=== PATIENT | female | born 1975 | race Caucasian/White ===

== ENCOUNTER 2016-08-23 12:46 | Outpatient (CLI) | payer MEDICAID | END 2016-08-23 13:25 | disposition home or self-care (01) | LOC: LC 12:46 | PROVIDERS: ATTEND Obstetrics & Gynecology | PROC: 4A1HXCZ Monitoring of Products of Conception, Cardiac Rate, External Approach (ICD-10-PCS; principal; 2016-08-23) | DX: O24.419 Gestational diabetes mellitus in pregnancy, unspecified control (principal); O09.523 Supervision of elderly multigravida, third trimester; Z3A.37 37 weeks gestation of pregnancy | CPT/HCPCS: 59025 ==

== ENCOUNTER 2016-09-09 04:43 | Inpatient (IN) | payer MEDICAID ==
[2016-09-09] MEDS ORDERED: RINGERS SOLUTION,LACTATED 1,000 ML IV ONE (05:08)
[2016-09-09] MEDS ORDERED: RINGERS SOLUTION,LACTATED 1,000 ML IV PRN (05:08)
[2016-09-09] MEDS ORDERED: OXYTOCIN/NORMAL SALINE 20 UNIT/1,000 ML RTUINJ ONE ×2 (05:09→07:53)
[2016-09-09] MEDS ORDERED: LIDOCAINE 1% INJ-PF (10 MG/ML) 30 ML SDV ONE (05:09)
[2016-09-09] MEDS ORDERED: MISOPROSTOL 0.2 MG TABLET ONE (05:09)
[2016-09-09] MEDS ORDERED: OXYTOCIN 10 UNIT/ML VIAL ONE (05:14)
[2016-09-09] MEDS ORDERED: METHYLERGONOVINE MALEATE INJ/PF 0.2 MG/1 ML AMPULE ONE (05:15)
[2016-09-09] MEDS ORDERED: PROMETHAZINE HCL 25 MG SUPP.RECT PR PRN (05:43)
[2016-09-09] MEDS ORDERED: METHYLERGONOVINE MALEATE INJ/PF 0.2 MG/1 ML AMPULE IM PRN (05:43)
[2016-09-09] MEDS ORDERED: BENZOCAINE/MENTHOL AEROSOL SPRAY 56 ML TOP PRN (05:43)
[2016-09-09] MEDS ORDERED: OXYTOCIN/NORMAL SALINE 1,000 ML IV PRN (05:43)
[2016-09-09] MEDS ORDERED: MAGNESIUM HYDROXIDE SUSP 30 ML UDCUP PO PRN (05:43)
[2016-09-09] MEDS ORDERED: PROMETHAZINE HCL 25 MG TABLET PO PRN (05:43)
[2016-09-09] MEDS ORDERED: DIPH/PERTUSS(ACELL)/TETANUS VAC/PF 0.5 ML SYR (>=10YO) IM PRN (05:43)
[2016-09-09] MEDS ORDERED: DIBUCAINE 1% OINTMENT 28 GM TP PRN (05:43)
[2016-09-09] MEDS ORDERED: PROMETHAZINE HCL INJ 25 MG/1 ML VIAL IV PRN (05:43)
[2016-09-09] MEDS ORDERED: MISOPROSTOL 0.2 MG TABLET PR PRN (05:43)
[2016-09-09] MEDS ORDERED: MEASLES,MUMPS&RUBELLA VACC/PF 0.5 ML VIAL SUBCUT PRN (05:43)
[2016-09-09] MEDS ORDERED: DIPHENHYDRAMINE HCL 25 MG CAPSULE PO PRN (05:43)
[2016-09-09] MEDS ORDERED: ZOLPIDEM TARTRATE 5 MG TABLET PO PRN (05:43)
[2016-09-09] MEDS ORDERED: NA PHOS,M-B/NA PHOS,DI-BA (ADULT) 133 ML ENEMA PR PRN (05:43)
[2016-09-09] MEDS ORDERED: ACETAMINOPHEN 650 MG SUPP.RECT PR PRN (05:43)
[2016-09-09] MEDS ORDERED: PSEUDOEPHEDRINE HCL 30 MG TABLET PO PRN (05:43)
[2016-09-09] MEDS ORDERED: GLYCERIN/WITCH HAZEL LEAF 1 EACH MED..PAD TP PRN (05:43)
[2016-09-09] MEDS ORDERED: IBUPROFEN 800 MG TABLET ONE (05:50)
[2016-09-09] MEDS ORDERED: ACETAMINOPHEN WITH CODEINE #3 TABLET ONE (05:50)
[2016-09-09 06:28] LABS: ABSOLUTE LYMPHOCYTES (AUTO) 1.9 10^3/uL (0.5-4.7); ABSOLUTE MONOCYTES (AUTO) 0.8 10^3/uL (0.1-1.4); ABSOLUTE NEUT (AUTO) 12.4 10^3/uL (1.7-8.2); BASOPHILS % (AUTO) 0.3 % (0-2); EOSINOPHILS % (AUTO) 0.3 % (0-6); HEMATOCRIT 38.6 % (36.0-47.0); HEMOGLOBIN 13.1 g/dL (12.0-15.5); HGB HCT DIFFERENCE 0.7; LYMPHOCYTES % (AUTO) 12.7 % (13-45); MEAN CORPUSCULAR HEMOGLOBIN 28.5 pg (27.0-33.4); MEAN CORPUSCULAR HGB CONC 33.9 g/dL (32.0-36.0); MEAN CORPUSCULAR VOLUME 84 fl (80-97); MONOCYTES % (AUTO) 5.5 % (3-13); RED CELL DISTRIBUTION WIDTH 13.5 % (11.5-14.0); SEGMENTED NEUTROPHILS % (AUTO) 81.2 % (42-78); WHITE BLOOD COUNT 15.2 10^3/uL (4.0-10.5)
[2016-09-09 06:35] LABS: APPEARANCE,URINE SLIGHTLY-CLOUDY; BILIRUBIN,URINE NEGATIVE (NEGATIVE); GLUCOSE, URINE NEGATIVE (NEGATIVE); KETONES,URINE NEGATIVE (NEGATIVE); LEUKOCYTE ESTERASE,URINE NEGATIVE (NEGATIVE); NITRITE,URINE NEGATIVE (NEGATIVE); PROTEIN,URINE 30 mg/dL (NEGATIVE); URINE SPECIFIC GRAVITY 1.009; UROBILINOGEN,URINE NEGATIVE mg/dL (<2.0)
[2016-09-09 06:50] LABS: URINE BARBITURATES SCREEN NEGATIVE; URINE METHADONE SCREEN NEGATIVE; URINE OPIATES LOW NEGATIVE; URINE PHENCYCLIDINE SCREEN NEGATIVE
[2016-09-09] MEDS: IBUPROFEN 800 MG TABLET PO SCH ×3 (07:56→21:25)
--- NOTE | 2016-09-09 08:01 | L&D Flow Sheet ---
LD Flowsheet Datetime Report Generated by CPN: 09/09/2016 08:00 Datetime: 09/09/2016 07:51 NBP Sys/Lindsay/Mean (mmHg): 122 (QS system process) : 78 (QS system process) : 95 (QS system process) Pulse: 81 (QS system process) Datetime: 09/09/2016 07:35 NBP Sys/Lindsay/Mean (mmHg): 129 (QS system process) : 77 (QS system process) : 98 (QS system process) Pulse: 76 (QS system process) Datetime: 09/09/2016 07:20 NBP Sys/Lindsay/Mean (mmHg): 137 (QS system process) : 70 (QS system process) : 96 (QS system process) Pulse: 77 (QS system process) Respirations: 18 (Adri Camp, RNC) Temperature (F): 98.4 (Adri Camp, RNC) Temperature (C): 36.9 (QS system process) Temperature Route: Oral (Adri Camp, RNC) Pain Pain Scale: 3 (Adri Camp, RNC) Pain Presence: Constant (Adri Camp, RNC) Pain Type: Burning; Cramping (Adri Camp, RNC) Pain Location: Abdomen; Perineum (Adri Camp, RNC) Pain Goal: 2 (Adri Camp, RNC) Pain Relief Measures: Pain Medication Given; Comfort Measures (Annotations: Ice pack reapplied, warm compress to abdomen. Dr Kerr on unit given verbal report of pt continued pain level of 3 after meds, repositioning, cold pack to perineum. ) (Adri Camp, RNC) Datetime: 09/09/2016 07:06 NBP Sys/Lindsay/Mean (mmHg): 131 (QS system process) : 93 (QS system process) : 105 (QS system process) Pulse: 89 (QS system process) Datetime: 09/09/2016 07:00 Vital Signs Stage of : Recovery (Lilly Jason, RN) Pain Pain Scale: 3 (Lilly Jason, RN) Pain Presence: Constant (Lilly Jason, RN) Pain Type: Ache (Lilly Jason, RN) Pain Location: Abdomen; Perineum (Lilly Jason, RN) Datetime: 09/09/2016 06:50 NBP Sys/Lindsay/Mean (mmHg): 143 (QS system process) : 90 (QS system process) : 111 (QS system process) Pulse: 77 (QS system process) Datetime: 09/09/2016 06:45 Vital Signs Stage of : Recovery (Lilly Jason, RN) Pain Pain Scale: 3 (Lilly Jason, RN) Pain Presence: Constant (Lilly Jason, RN) Pain Type: Ache (Lilly Jason, RN) Pain Location: Abdomen; Perineum (Lilly Jason, RN) Datetime: 09/09/2016 06:42 NBP Sys/Lindsay/Mean (mmHg): 151 (QS system process) : 92 (QS system process) : 114 (QS system process) Pulse: 79 (QS system process) Datetime: 09/09/2016 06:36 NBP Sys/Lindsay/Mean (mmHg): 144 (QS system process) : 92 (QS system process) : 114 (QS system process) Pulse: 82 (QS system process) Datetime: 09/09/2016 06:30 Vital Signs Stage of : Recovery (Lilly Jason, RN) Pain Pain Scale: 3 (Lilly Jason, RN) Pain Presence: Constant (Lilly Jason, RN) Pain Type: Ache (Lilly Jason, RN) Pain Location: Abdomen; Perineum (Lilly Jason, RN) Datetime: 09/09/2016 06:15 Vital Signs Stage of : Recovery (Lilly Jason, RN) Pain Pain Scale: 3 (Lilly Jason, RN) Pain Presence: Constant (Lilly Jason, RN) Pain Type: Ache (Lilly Jason, RN) Pain Location: Abdomen; Perineum (Lilly Jason, RN) Datetime: 09/09/2016 06:06 NBP Sys/Lindsay/Mean (mmHg): 158 (QS system process) : 73 (QS system process) : 106 (QS system process) Pulse: 100 (QS system process) Datetime: 09/09/2016 06:00 Vital Signs Stage of : Recovery (Lilly Jason, RN) Pain Pain Scale: 3 (Lilly Jason, RN) Pain Presence: Constant (Lilly Jason, RN) Pain Type: Ache (Lilly Jaosn, RN) Pain Location: Abdomen; Perineum (Lilly Jason, RN) Datetime: 09/09/2016 05:51 NBP Sys/Lindsay/Mean (mmHg): 142 (QS system process) : 93 (QS system process) : 112 (QS system process) Pulse: 106 (QS system process) Datetime: 09/09/2016 05:45 Vital Signs Stage of : Recovery (Lilly Jason, RN) Pain Pain Scale: 5 (Lilly Jason, RN) Pain Presence: Constant (Lilly Jason, RN) Pain Type: Ache (Lilly Jason, RN) Pain Location: Abdomen; Perineum (Lilly Jason, RN) Datetime: 09/09/2016 05:37 NBP Sys/Lindsay/Mean (mmHg): 148 (QS system process) : 75 (QS system process) : 106 (QS system process) Pulse: 89 (QS system process) Datetime: 09/09/2016 05:36 NBP Sys/Lindsay/Mean (mmHg): 176 (QS system process) : 92 (QS system process) : 113 (QS system process) Pulse: 94 (QS system process) Datetime: 09/09/2016 05:35 Communication Communication Comments: Dr. neilsen remains at bedside (Lilly Jason, RN) Datetime: 09/09/2016 05:32 Patient Care Patient Care Comments: 18 IV L hand started, pitcoin 20 units/1000 ml NS bolus started (Lilly Jason, RN) Datetime: 09/09/2016 05:30 Vital Signs Stage of : Recovery (Lilly Jason, RN) NBP Sys/Lindsay/Mean (mmHg): 129 (QS system process) : 76 (QS system process) : 96 (QS system process) Pulse: 88 (QS system process) Temperature (F): 98.0 (Lilly Jason, RN) Temperature (C): 36.7 (QS system process) Temperature Route: Oral (Lilly Jason, RN) Pain Pain Scale: 5 (Lilly Jason, RN) Pain Presence: Constant (Lilly Jason, RN) Pain Type: Ache (Lilly Jason, RN) Pain Location: Abdomen; Perineum (Lilly Jason, RN) Datetime: 09/09/2016 05:27 Medications Medication Comments: methergine 0.2 IM to L thigh (Lilly Jason, RN) Datetime: 09/09/2016 05:24 Medications Medication Comments: Cytotec 1000 ml RI (Lilly Jason, RN) Datetime: 09/09/2016 05:22 Stage 2 Comments: delivery of intact placenta in toribio position, wnl (Lilly Jason, RN) Datetime: 09/09/2016 05:20 Stage 2 Comments: cord blood obtained (Lilly Jason, RN) Datetime: 09/09/2016 05:18 Medications Medication Comments: Pitocin 10 units IM left thigh (Lilly Jason, RN) Datetime: 09/09/2016 05:17 Uterine Activity Monitor Mode: External; Palpation (Lilly Jason, RN) Frequency (min): 1.5-2 (Lilly Jason, RN) Quality: Moderate to Strong (Lilly Jason, RN) Duration (sec): 50-70 (Lilly Jason, RN) Duration Criteria: Less than Two 120 Second Contractions (Lilly Jason, RN) Pattern: Normal: <= 5 Contractions in 10 Minutes (Lilly Jason, RN) Resting Tone (Palpate): Relaxed (Lilly Jason, RN) Assessment A Monitor Mode: External US (Lilly Jason, RN) FHR Baseline Rate : 115 (Lilly Jason, RN) Variability: Moderate 6-25 bpm (Lilly Jason, RN) Accelerations: 15X15 (Lilly Jason, RN) Decelerations: Early (Lilly Jason, RN) Stage 2 Comments: delivery of viable female, infant directly to maternal abdomen, dried and stimulated, bulb suctioned (Lilly Jason, RN) Datetime: 09/09/2016 05:14 Vaginal Exam Dilatation (cm): 10.0 (Lilly Jason, RN) Effacement (%): 100 (Lilly Jason, RN) Station: 3 (Lilly Gomez, RN) Exam by: Dr Kerr (Lilly Gomez, RN) Membrane Status: Ruptured (Lilly Simsco, RN) Membranes Ruptured Date/Time: 09/09/2016 05:14 (Lilly Jason, RN) Membranes Rupture Method: Artificial (Lilly Jason, RN) Amniotic Fluid Color: Light Meconium (Lilly Jason, RN) Amniotic Fluid Amount: Small (Lilly Jason, RN) Amniotic Fluid Odor: Normal (Lilly Jason, RN) Stage 2 Pushing: Coached on Pushing (Lilly Gomez, RN) Pushing Position: Pushing with Contractions (Lilly Gomez, RN) Pushing Progress: Descent with Pushing; Presenting Part Visible; with Pushing (Lilly Gomez, RN) Stage 2 Comments: preparing for imminent delivery, dr kerr at bedside, nursery carolina patton at bedside (Lilly Gomez, RN) Datetime: 09/09/2016 05:12 Stage 2 Comments: nursery requested (Lilly Jason, RN) Datetime: 09/09/2016 05:09 Communication Communication Comments: dr. neilsen at bedside (Lilly Jason, RN) Datetime: 09/09/2016 05:08 Frequency (min): Q2-3 (Lilly Jason, RN) Pain Pain Scale: 5 (Lilly Jason, RN) Pain Presence: Constant (Lilly Jason, RN) Pain Type: Contraction (Lilly Jason, RN) Pain Location: Abdomen (Lilly Jason, RN) Vaginal Bleeding: Normal Show (Lilly Jason, RN) Maternal Assessment Level of Consciousness: Fully Conscious (Lilly Jason, RN) DTR's/Clonus: DTRs 2+; No Clonus (Lilly Jason, RN) Headache: Denies (Lilly Jason, RN) Breath Sounds, Left: Clear and Equal (Lilly Jason, RN) Breath Sounds, Right: Clear and Equal (Lilly Jason, RN) Nausea/Vomiting: Denies (Lilly Jason, RN) RUQ Epigastric Pain: Denies (Lilly Jason, RN) LaborFlag: Labor (QS system process) Datetime: 09/09/2016 05:07 Communication Communication Comments: Dr. Neilsen aware of patient arrival and imminent delivery. MD in route (Sheila Kossmann, RN) Datetime: 09/09/2016 05:05 Vaginal Exam Dilatation (cm): 8.0 (Lilly Jason, RN) Vaginal Exam Dilatation (cm): 8.0 (Sheila Wynn RN) Effacement (%): 100 (Lilly Gomez RN) Effacement (%): 100 (Sheila Wynn RN) Station: 0 (Lilly Gomez RN) Station: 0 (Sheila Wynn RN) Exam by: Juan M Gomez RN (Lilly Gomez RN) Exam by: CAROLINA Gomez (Sheila Wynn RN) Membrane Status: Bulging (Annotations: BBOW) (Sheila Wynn RN) Vaginal Bleeding: None (Lilly Gomez RN) Cervix, Consistency: Soft (Lilly Gomez RN) Cervix, Position: Anterior (Lilly Gomez, CAROLINA) Datetime: 09/09/2016 05:00 Vital Signs Stage of : Labor (Lilly Gomez, RN)
--- NOTE | 2016-09-09 08:13 | Admission Physical ---
Datetime Report Generated by CPN: 09/09/2016 08:13 CURRENT ADMISSION Hx Assessment: The History has been Reviewed and is Current Chief Complaint: Uterine Contractions Admit Plan: Initiate Labor Protocol ALLERGIES Medication Allergies: No Medication Allergies: No Known Allergies (09/09/2016) Medication Allergies: No Known Allergies (08/23/2016) Medication Allergies: No Known Allergies (03/20/2012) Latex: Latex Allergies OBSTETRICAL HISTORY EDC: 09/08/2016 00:00 : 7 Para: 2 Term: 2 : 0 SAB: 4 IAB: 0 Ectopic: 0 Livin Cesareans: 0 VBACs: 0 Multiple Births: 0 Gestational Diabetes: Yes Rh Sensitization: No Incompetent Cervix: No SHAYNA: No Infertility: No ART Treatment: No Uterine Anomaly: No IUGR: No Hx Previous C/S: No Macrosomia: No Hx Loss/Stillborn: No PIH: No Hx : No Placenta Previa/Abruption: No Depression/PP Depression: No PTL/PROM: No Post Hemorrhage: No Current Procedures: Ultrasound; NST SEE RECORDS Alcohol: No Marijuana : No Cocaine: No Other Illicit Drugs: No Cigarettes: Current Everyday Smoker. [id number] Advised to Stop: Yes MEDICAL HISTORY Diabetes: No Blood Transfusion: No Pulmonary Disease (Asthma, TB): No Breast Disease: No Hypertension: No Waste Removalist Surgery: No Heart Disease: No Hosp/Surgery: No Autoimmune Disorder: No Anesthetic Complications: No Kidney Disease: No Abnormal Pap Smear: Yes Neuro/Epilepsy: No Psychiatric Disorders: No Other Medical Diseases: No Hepatitis/Liver Disease: No Significant Family History: No Varicosities/Phlebitis: No Trauma/Violence : No Thyroid Dysfunction: No INFECTIOUS HISTORY Gonorrhea: Yes Genital Herpes: No Chlamydia: Yes Tuberculosis: No Syphilis: No Hepatitis: No HIV/AIDS Exposure: No Rash or Viral Illness: No HPV: Yes PHYSICAL EXAM General: Normal HEENT: Normal Neurologic: Normal Thyroid: Normal Heart: Normal Lungs: Normal Breast: Normal Back: Normal Abdomen: Normal Genitourinary Exam: Normal Extremities: Normal DTRs: Normal Pelvic Type: Adequate Physical Exam Comments: pt arrived 8cm with bulging bag and rapidly progressed to complete and pushing before iv could be started. Arom with bag at perineum -light meconium FETUS A EGA: 40.1 Monitoring: External US Admit Comment: pt had preciptious delivery-see delivery note PLANS FOR LABOR AND DELIVERY Labor and Delivery: None Pain Management: None Feeding Preference: Breast Benefit of Breast Feed Discussed: Yes Circumcision: N/A INFORMED CONSENT Signature: with User ID: [email or web address]
[2016-09-09] MEDS: PRENATAL VITAMIN W-O CA NO5/FE FUMARATE/FA CAPSULE PO SCH (10:31)
[2016-09-09] MEDS: FAMOTIDINE 20 MG TABLET PO SCH ×2 (10:32→21:24)
[2016-09-09] MEDS: FERROUS SULFATE 325 MG TABLET PO SCH ×2 (10:32→18:05)
[2016-09-09] MEDS: DOCUSATE SODIUM 100 MG CAPSULE PO SCH ×2 (10:32→18:06)
[2016-09-09] MEDS: SENNOSIDES/DOCUSATE 8.6-50 MG 1 EACH TABLET PO SCH (10:32)
[2016-09-09] MEDS: ACETAMINOPHEN WITH CODEINE #3 TABLET PO PRN ×3 (10:41→19:46)
[2016-09-09 12:30] LABS: ABSOLUTE BASOPHILS # (AUTO) 0.1 10^3/uL (0.0-0.2); ABSOLUTE LYMPHOCYTES (AUTO) 2.3 10^3/uL (0.5-4.7); ABSOLUTE MONOCYTES (AUTO) 0.9 10^3/uL (0.1-1.4); ABSOLUTE NEUT (AUTO) 13.7 10^3/uL (1.7-8.2); BASOPHILS % (AUTO) 0.6 % (0-2); EOSINOPHILS % (AUTO) 0.2 % (0-6); HEMOGLOBIN 11.6 g/dL (12.0-15.5); HGB HCT DIFFERENCE 0.8; LYMPHOCYTES % (AUTO) 13.4 % (13-45); MEAN CORPUSCULAR HEMOGLOBIN 28.6 pg (27.0-33.4); MEAN CORPUSCULAR HGB CONC 34.2 g/dL (32.0-36.0); MEAN CORPUSCULAR VOLUME 84 fl (80-97); MONOCYTES % (AUTO) 5.1 % (3-13); RED BLOOD COUNT 4.07 10^6/uL (3.72-5.28); RED CELL DISTRIBUTION WIDTH 13.7 % (11.5-14.0); SEGMENTED NEUTROPHILS % (AUTO) 80.7 % (42-78)
--- NOTE | 2016-09-09 14:35 | PDOC PROGRESS REPORT ---
Subjective-OB Subjective: Post Delivery Day: 1 41 year old. Voiding and ambulating without difficulty. Denies any needs at this time Physical Exam (OB) Vital Signs: Temp Pulse Resp BP Pulse Ox 98.9 F 81 18 122/78 100 09/09/16 08:15 09/09/16 08:15 09/09/16 08:15 09/09/16 08:15 09/09/16 08:15 Intake & Output 09/08/16 09/09/16 09/10/16 06:59 06:59 06:59 Intake Total 450 Balance 450 Weight 71.75 kg - General General Appearance: Appears well In distress: None - Lochia Lochia Amount: Moderate 25-50 ml Lochia Color: Rubra/Red - Abdomen Description: Soft Hernia Present: No Fundal Description: Firm, Midline Fundal Height: u/u - u/2 - Respiratory Respiratory Status: No respiratory distress - Psychological Associated symptoms: Normal affect - bonding well with baby. Older Daughter hepful and at bedside Objective-Diagnostic Laboratory: 09/09/16 12:19 09/09/16 09/09/16 09/09/16 06:20 06:20 06:20 WBC 15.2 H RBC 4.60 Hgb 13.1 Hct 38.6 MCV 84 MCH 28.5 MCHC 33.9 RDW 13.5 Plt Count 155 Seg Neutrophils % 81.2 H Lymphocytes % 12.7 L Monocytes % 5.5 Eosinophils % 0.3 Basophils % 0.3 Absolute Neutrophils 12.4 H Absolute Lymphocytes 1.9 Absolute Monocytes 0.8 Absolute Eosinophils 0.0 Absolute Basophils 0.0 Urine Color YELLOW Urine Appearance SLIGHTLY-CLOUDY Urine pH 5.0 Ur Specific [place] 1.009 Urine Protein 30 H Urine Glucose (UA) NEGATIVE Urine Ketones NEGATIVE Urine Blood LARGE H Urine Nitrite NEGATIVE Ur Leukocyte Esterase NEGATIVE Blood Type O POSITIVE Antibody Screen NEGATIVE 09/09/16 12:19 WBC 17.0 H RBC 4.07 Hgb 11.6 L Hct 34.0 L MCV 84 MCH 28.6 MCHC 34.2 RDW 13.7 Plt Count 147 L Seg Neutrophils % 80.7 H Lymphocytes % 13.4 Monocytes % 5.1 Eosinophils % 0.2 Basophils % 0.6 Absolute Neutrophils 13.7 H Absolute Lymphocytes 2.3 Absolute Monocytes 0.9 Absolute Eosinophils 0.0 Absolute Basophils 0.1 Urine Color Urine Appearance Urine pH Ur Specific [place] Urine Protein Urine Glucose (UA) Urine Ketones Urine Blood Urine Nitrite Ur Leukocyte Esterase Blood Type Antibody Screen Assessment and Plan(PN) - Assessment and Plan (1) hemorrhage, third stage, delivered Is this a current diagnosis for this admission?: YesPlan: continue stay, CBC in the am (2) Delivery normal Is this a current diagnosis for this admission?: YesPlan: continue stay (3) Gestational diabetes Qualifiers: Gestational diabetes mellitus control: diet-controlled Is this a current diagnosis for this admission?: YesPlan: cotnidavid stay - Time Spent with Patient Time with patient: Less than 15 minutes Medications reviewed and adjusted accordingly: Yes - Disposition Anticipated Discharge: Home Within: within 24 hours
--- NOTE | 2016-09-09 19:01 | L&D Flow Sheet ---
LD Flowsheet Datetime Report Generated by CPN: 09/09/2016 19:00 Datetime: 09/09/2016 07:51 NBP Sys/Lindsay/Mean (mmHg): 122 (QS system process) : 78 (QS system process) : 95 (QS system process) Pulse: 81 (QS system process) Respirations: 18 ([facility], [facility]) Pain Scale: 2 ([facility], [facility]) Pain Presence: Intermittent ([facility]) Pain Type: Burning; Cramping ([facility], [facility]) Pain Location: Abdomen; Perineum ([facility], [facility]) Pain Relief Measures: Pain Medication Given; Comfort Measures (Annotations: ice pack and peripad replaced ) ([facility], [facility]) Pain Assessment Comments: talking with visitor, no apparent distress noted [facility] Datetime: 09/09/2016 07:35 NBP Sys/Lindsay/Mean (mmHg): 129 (QS system process) : 77 (QS system process) : 98 (QS system process) Pulse: 76 (QS system process) Respirations: 18 (Adri Camp, RNC) Datetime: 09/09/2016 07:20 NBP Sys/Lindsay/Mean (mmHg): 137 (QS system process) : 70 (QS system process) : 96 (QS system process) Pulse: 77 (QS system process) Respirations: 18 (Adri Camp, RNC) Temperature (F): 98.4 (Adri Camp, RNC) Temperature (C): 36.9 (QS system process) Temperature Route: Oral (Adri Camp, RNC) Pain Scale: 3 (Adri Camp, RNC) Pain Presence: Constant (Adri Camp, RNC) Pain Type: Burning; Cramping (Adri Camp, RNC) Pain Location: Abdomen; Perineum (Adri Camp, RNC) Pain Goal: 2 (Adri Camp, RNC) Pain Relief Measures: Pain Medication Given; Comfort Measures (Annotations: Ice pack reapplied, warm compress to abdomen. Dr Ornelas on unit given verbal report of pt continued pain level of 3 after meds, repositioning, cold pack to perineum. ) (Adri Camp, RNC) Datetime: 09/09/2016 07:06 NBP Sys/Lindsay/Mean (mmHg): 131 (QS system process) : 93 (QS system process) : 105 (QS system process) Pulse: 89 (QS system process) Datetime: 09/09/2016 07:00 Stage of : Recovery (Lilly Gomez RN) Pain Scale: 3 (Lilly Gomez RN) Pain Presence: Constant (iLlly Gomez RN) Pain Type: Ache (Lilly Gomez RN) Pain Location: Abdomen; Perineum (Lilly Gomez RN)
[2016-09-10] MEDS: ACETAMINOPHEN WITH CODEINE #3 TABLET PO PRN ×5 (00:26→19:46)
[2016-09-10] MEDS: IBUPROFEN 800 MG TABLET PO SCH ×3 (05:03→21:16)
--- NOTE | 2016-09-10 06:01 | L&D General Admission ---
General Admit Datetime Report Generated by CPN: 09/10/2016 06:00 INFORMATION Patient Age: 41 (08/23/2016 12:48:QS system process) EDC: 09/08/2016 00:00 (08/23/2016 12:58:July Ectore, RNC) : 7 (08/23/2016 12:58:Julyarias Barneye, RNC) Para: 2 (08/23/2016 12:58:July Bellavance, RNC) Term: 2 (08/23/2016 12:58:July Bellavance, RNC) : 0 (08/23/2016 12:58:July Bellmiriamnce, RNC) Spontaneous Abortions: 4 (08/23/2016 12:58:July Ectore, RNC) Induced Abortions: 0 (08/23/2016 12:58:July Bellmiriamnce, RNC) Livin (08/23/2016 12:58:Julyarias Sanchez, RNC) Cesareans: 0 (08/23/2016 12:58:July Bellavance, RNC) VBACs: 0 (08/23/2016 12:58:July Bellavance, RNC) Ectopic: 0 (08/23/2016 12:58:July Bellavance, RNC) Multiple Births: 0 (08/23/2016 12:58:July Bellavance, RNC) Baby, Number in Womb: 1 (08/23/2016 12:58:July Bellavance, RNC) CARE Primary Track Coach: [facility] (08/23/2016 12:58:July Ectore, RNC) Month of 1st Visit: january (08/23/2016 12:58:Adri Parsons, RN) Adequate Care: Yes (08/23/2016 12:58:Adri Issa, RNC) Prepregnancy Weight (lb): 178 (08/23/2016 12:58:Adri Parsons RN) Prepregnancy Weight (kg): 80.9 (08/23/2016 12:58:QS system process) Height (in): 62 (09/09/2016 08:11:QS system process) ALLERGIES Medication Allergy: No (08/23/2016 12:58:July Bellavance, RNC) Medication Allergies: No Known Allergies (09/09/2016) (09/09/2016 08:01:QS system process) Latex Allergy: Latex Allergies (08/23/2016 12:58:July Bellavance, RNC) COMMUNICATION Primary Language: Cape Verdean (08/23/2016 12:58:Susan Awan RN) Medical Tx Preferred Language: Cape Verdean (08/23/2016 12:58:Susan Awan RN) Communication Barrier(s): None (08/23/2016 12:58:Susan Awan RN) DEMOGRAPHICS Address: [address] [place] [id number] (08/23/2016 12:48:QS system process) Zipcode: [phone] (08/23/2016 12:48:QS system process) Home (08/23/2016 12:48:QS system process) SSN: [id number] (08/23/2016 12:48:QS system process) Next of Kin Name: AURELIA SILVA (08/23/2016 12:48:QS system process) Next of Kin (08/23/2016 12:48:QS system process) Next of Kin Relationship: MO (08/23/2016 12:48:QS system process) Date of : 1975 (08/23/2016 12:48:QS system process) Marital Status: (08/23/2016 12:48:QS system process) Sex: Female (08/23/2016 12:48:QS system process) Race: (08/23/2016 12:48:QS system process) Ethnicity: Non- or (08/23/2016 12:48:QS system process) Zoroastrian: None (08/23/2016 12:48:QS system process) DRUG AND ALCOHOL USE Alcohol: No (08/23/2016 12:58:Lilly Gomez RN) Cigarettes: Current Everyday Smoker. [id number] (08/23/2016 12:58:Lilly Gomez RN) Advised to Stop Smoking: Yes (08/23/2016 12:58:Lilly Gomez RN) Marijuana: No (08/23/2016 12:58:Lilly Gomez RN) Cocaine: No (08/23/2016 12:58:Lilly Gomez RN) Other Illicit Drugs: No (08/23/2016 12:58:Lilly Gomez RN) VACCINE HISTORY Influenza Vaccine: No (08/23/2016 12:58:Lilly Gomez RN) Pneumococcal Vaccine: No (08/23/2016 12:58:Lilly Gomez RN) Tetanus Vaccine: No (08/23/2016 12:58[facility] Tdap Vaccine: No (08/23/2016 12:58:Adri [facility]) Hepatitis B Vaccine: Uncertain (08/23/2016 12:58:Adri [facility]) Logistics Solution Manager: [facility] (08/23/2016 12:58:Lilly Gomez RN) Feeding Preference: Breast (08/23/2016 12:58:Lilly Gomez RN) Benefit of Breast Feed Discussed: Yes (08/23/2016 12:58:Lilly Gomez RN) Circumcision: N/A (08/23/2016 12:58:Lilly Gomez RN) Classes Attended: No (08/23/2016 12:58:Lilly Gomez RN) Tubal Ligation: No (08/23/2016 12:58:Lilly Gomez RN) Tubal Authorization Signed: N/A (08/23/2016 12:58:Lilly Gomez RN) Consent: N/A (08/23/2016 12:58:Lilly Gomez RN) Consent Signed: Yes (08/23/2016 12:58:Lilly Gomez RN) Pain Management Plans: None (08/23/2016 12:58:Susan Awan RN) Plans for Labor and Delivery: None (08/23/2016 12:58:Susan Awan RN) Support Person: Ferdinand Silva (08/23/2016 12:58:Lilly Gomez RN) Support Person Relationship: Other (08/23/2016 12:58:Lilly Gomez RN) Other Relationship: daughter (08/23/2016 12:58:Lilly Gomez RN) Cultural/Spritual Practice: Yes (08/23/2016 12:58:Lilly Gomez RN) Spir/Cult Dietary Needs: Yes (08/23/2016 12:58:Lilly Gomez RN) LIVING SITUATION/DISCHARGE PLAN Living Arrangements: House (08/23/2016 12:58:Lilly Gomez RN) Adequate Access to:: Electric; Heat; Refrigeration; Plumbing/Running water; Phone; Transportation (08/23/2016 12:58:Lilly Gomez RN) WIC Program: Yes (08/23/2016 12:58:Lilly Gomez RN) Discharge Cloth Designer Person: Aurelia Silva (08/23/2016 12:58:Lilly Gomez RN) Person to Help after Discharge: Aurelia Pacheco08/23/2016 12:58:Lilly Gomez RN) Currently Using Commun Resources: Yes (08/23/2016 12:58:Lilly Gomez RN) Outside Agency/Cyber Incident Responder: No (08/23/2016 12:58:Lilly Gomez RN) Car Seat for Discharge: Yes (08/23/2016 12:58:Lilly Gomez RN) Adoption Requested: No (08/23/2016 12:58:Lilly Gomez RN) Pt Contact w/ Post : N/A (08/23/2016 12:58:Lilly Gomez RN) LABS Blood Type: O Positive (08/23/2016 12:58:Susan Awan RN) Antibody Screen: Negative (08/23/2016 12:58:Susan Awan RN) Rho(G) this : Not Applicable (08/23/2016 12:58:Susan Awan RN) Hemoglobin: 11.6 L (09/09/2016 12:19:QS system process) Hematocrit: 34.0 L (09/09/2016 12:19:QS system process) MCV: 84 (09/09/2016 12:19:QS system process) Group Beta Strep: Negative (08/23/2016 12:58:Susan Awan RN) Gonorrhea: Negative (08/23/2016 12:58:Susan Awan RN) Chlamydia: Negative (08/23/2016 12:58:Susan Awan RN) RPR/VDRL: Nonreactive (08/23/2016 12:58:Susan Aawn RN) HIV Exposure Test: Negative (08/23/2016 12:58:JAYLON Nunes) HIV Results: Negative (08/23/2016 12:58:Susan Awan RN) Hepatitis B: Negative (08/23/2016 12:58:Susan Awan RN) Rubella: Immune (08/23/2016 12:58:Susan Awan RN) Varicella: Non Susceptible (08/23/2016 12:58:Susan Awan RN) OB/PREVIOUS HISTORY Previous Procedures: Ultrasound (08/23/2016 12:58:Susan Awan RN) Current Procedures: Ultrasound; NST (08/23/2016 12:58:Susan Awan RN) History of Previous : No (08/23/2016 12:58:Lilly Gomez RN) History of Gestational Diabetes: Yes (08/23/2016 12:58:Lilly Gomez RN) History of PIH: No (08/23/2016 12:58:Lilly Gomez RN) History of Incompetent Cervix: No (08/23/2016 12:58:Lilly Gomez RN) History of Placenta Previa/Abrup: No (08/23/2016 12:58:Lilly Gomez RN) History of Macrosomia: No (08/23/2016 12:58:Lilly Gomez RN) History of IUGR: No (08/23/2016 12:58:Lilly Gomez RN) History of Hemorrhage: No (08/23/2016 12:58:Lilly Gomez RN) History of Loss/Stillborn: No (08/23/2016 12:58:Lilly Gomez RN) History of : No (08/23/2016 12:58:Lilly Gomez RN) History of D (Rh) Sensitization: No (08/23/2016 12:58:Lilly Gomez RN) History Recurrent Loss/Stillborn: No (08/23/2016 12:58:Lilly Gomez RN) History Depression/PP Depression: No (08/23/2016 12:58:Lilly Gomez RN) History of Uterine Anomaly/SHAYNA: No (08/23/2016 12:58:Lilly Gomez RN) History of Infertility: No (08/23/2016 12:58:Lilly Gomez RN) History of ART Treatment: No (08/23/2016 12:58:Lilly Gomez RN) History of SHAYNA: No (08/23/2016 12:58:Lilly Gomez RN) MEDICAL HISTORY Med Hx Diabetes: No (08/23/2016 12:58:Lilly Gomez RN) Med Hx Hypertension: No (08/23/2016 12:58:Lilly Gomez RN) Med Hx Heart Disease: No (08/23/2016 12:58:Lilly Gomez RN) Med Hx Autoimmune Disorder: No (08/23/2016 12:58:Lilly Gomez RN) Med Hx Kidney Disease/UTI: No (08/23/2016 12:58:Lilly Gomez RN) Med Hx Neurologic/Epilepsy: No (08/23/2016 12:58:Lilly Gomez RN) Med Hx Psychiatric Disorders: No (08/23/2016 12:58:Lilly Gomez RN) Med Hx Hepatitis/Liver Disease: No (08/23/2016 12:58:Lilly Gomez RN) Med Hx Varicosities/Phlebitis: No (08/23/2016 12:58:Lilly oGmez RN) Med Hx Thyroid Dysfunction: No (08/23/2016 12:58:Lilly Gomez RN) Med Hx Trauma/Violence: No (08/23/2016 12:58:Lilly Gomez RN) Med Hx Blood Transfusion: No (08/23/2016 12:58:Lilly Gomez RN) Med Hx Pulmonary (Asthma,TB): No (08/23/2016 12:58:Lilly Gomez RN) Med Hx Breast: No (08/23/2016 12:58:Lilyl Gomez RN) Med Hx MACHINE CARTON MARKER Surgery: No (08/23/2016 12:58:Lilly Gomez RN) Med Hx Hospitalization/Surgery: No (08/23/2016 12:58:Lilly Gomez RN) Med Hx Anesthetic Complications: No (08/23/2016 12:58:Lilly Gomez RN) Med Hx Abnormal Pap Smear: Yes (08/23/2016 12:58:Lilly Gomez RN) Other Medical Diseases: No (08/23/2016 12:58:Lilly Gomez RN) Med Hx Significant Family Hx: No (08/23/2016 12:58:Lilly Gomez RN) INFECTIOUS HISTORY Inf Hx Gonorrhea: Yes (08/23/2016 12:58:Lilly Gomez RN) Inf Hx Chlamydia: Yes (08/23/2016 12:58:Lilly Gomez RN) Inf Hx Syphilis: No (08/23/2016 12:58:Lilly Gomez RN) Inf Hx HIV/AIDS: No (08/23/2016 12:58:Lilly Gomez RN) Inf Hx Human Papilloma Virus: Yes (08/23/2016 12:58:Lilly Gomez RN) Inf Hx Pt/Partner Genital Herpes: No (08/23/2016 12:58:Lilly Gomez RN) Inf Hx Tuberculosis/Exposure: No (08/23/2016 12:58:Lilly Gomez RN) Inf Hx Hepatitis B,C: No (08/23/2016 12:58:Lilly Gomez RN) Inf Hx Rash or Viral Illness: No (08/23/2016 12:58:Lilly Gomez RN) GENETIC HISTORY Gen Hx Age >=35 at NOBLE: No (08/23/2016 12:58:Lilly Gomez RN) Gen Hx Thalassemia: No (08/23/2016 12:58:Lilly Gomez RN) Gen Hx Congenital Heart Defect: No (08/23/2016 12:58:Lilly Gomez RN) Gen Hx Neural Tube Defect: No (08/23/2016 12:58:Lilly Gomez RN) Gen Hx Down's Syndrome: No (08/23/2016 12:58:Lilly Gomez RN) Gen Hx Kee-Sachs: No (08/23/2016 12:58:Lilly Gomez RN) Gen Hx Zhen: No (08/23/2016 12:58:Lilly Gomez RN) Gen Hx Familial Dysautonomia: No (08/23/2016 12:58:Lilly Gomez RN) Gen Hx Sickle Cell Disease/Trait: No (08/23/2016 12:58:Lilly Gomez RN) Gen Hx Hemophilia/Blood Disorder: No (08/23/2016 12:58:Lilly Gomez RN) Gen Hx Muscular Dystrophy: No (08/23/2016 12:58:Lilly Gomez RN) Gen Hx Cystic Fibrosis: No (08/23/2016 12:58:Lilly Gomez RN) Gen Hx Huntingtons Chorea: No (08/23/2016 12:58:Lilly Gomez RN) Gen Hx Mental Retardation/Autism: No (08/23/2016 12:58:Lilly Gomez RN) Gen Hx Tested for Fragile X: No (08/23/2016 12:58:Lilly Gomez RN) Gen Hx Other Inher/Chromosomal: No (08/23/2016 12:58:Lilly Gomez RN) Gen Hx Maternal Metabolic DO: No (08/23/2016 12:58:Lilly Gomez RN) Gen Hx Pt Father or FOB Defect: No (08/23/2016 12:58:Lilly Gomez RN) Gen Hx Other Genetic History: No (08/23/2016 12:58:Lilly Gomez RN) Gen Hx Drugs/Meds since LMP: No (08/23/2016 12:58:Lilly Gomez RN)
--- NOTE | 2016-09-10 06:16 | L&D Care Plan ---
LD CARE PLANS Datetime Report Generated by CPN: 09/10/2016 06:15 Datetime: 09/09/2016 05:10 Pain State: Risk For (Sheila Wynn RN) Related To: Labor and Delivery Process; Complication(s) of ; Treatment and Procedures; Post (Sheila Wynn RN) Goal(s): Patients Pain will be Assessed and Managed; Patient will Verbalize Adequate Relief of Pain or the Ability to [place] with Current Pain (Sheila Wynn RN) Interventions: Assess Pain Severity on Scale of 0 (None) to 5 (Severe); Assess Type, Location and Intensity of Pain Each Time Client Reports Discomfort and Notify Provider if Unusal Pain Develops; Encourage Proper Breathing and Relaxation Techniques; Offer Alternatives Such as Repositioning, Calm Environment, Massages, Diversional Activities, Ice Pack, Splinting, and Ambulation; Administer Analgesics as Ordered; Assist with Epidural Placement as Appropriate; Evaluate Therapeutic Effectiveness of Medication and Treatments (Sheila Wynn RN) Outcome: Patient will Report Absence or Relief of Pain Consistent with Established Pain Goal (Sheila Wynn RN) Status: Ongoing (Sheila Wynn RN) Outcome: Patient will have a Decrease in Signs and Symptoms of Discomfort (Sheila Wynn RN) Status: Ongoing (Sheila Wynn RN) Outcome: Pain will be Controlled During Procedures (Sheila Wynn RN) Status: Ongoing (Sheila Wynn RN) Anxiety State: Risk For (Sheila Wynn RN) Related To: Labor and Delivery Process; Surgical Procedure; Fear of Unknown; Medical Interventions (Sheila Wynn RN) Goal(s): Patient will have Decreased Anxiety and be able to Function at Acceptable Levels (Sheila Wynn RN) Interventions: Assess Verbal and Nonverbal Behavioral Indicators of Anxiety; Assist Patient to Identify and Verbalize Symptoms of Anxiety; Identify and Demonstrate Techniques to Control Anxiety; Assist Patient with Coping Mechanisms to Manage Anxiety; Provide Theraputic Touch for the Patient; Explain to Patient, Using a Calm Reassuring Approach and Nonmedical Terms, All Activities, Procedures, and Concerns; Instruct Patient and Family about Post Discharge Care, Limitations, Symptoms to Report and Resources Available (Sheila Wynn RN) Outcome: Patient will Identify, Verbalize and Demonstrate Techniques to Control Anxiety (Sheila Wynn RN) Status: Ongoing (Sheila Wynn RN) Outcome: Patient's Posture, Facial Expressions, Gestures and Activity Level will Reflect Decreased Anxiety (Sheila Wynn RN) Status: Ongoing (Sheial Wynn RN) Outcome: Patient will Verbalize a Sense of Control and/or Acceptance of the Situation (Sheila Wynn RN) Status: Ongoing (Sheila Wynn RN) Outcome: Patient will Identify and Utilize Support Person (Sheila Wynn RN) Status: Ongoing (Sheila Wynn RN) Knowledge Deficit State: Risk For (Sheila Wynn RN) Related To: Labor and Delivery Process; Surgical Procedures; Treatment and Procedures; Feeding and Care (Sheila Wynn RN) Goal(s): Patient will Accurately Verbalize Understanding of Plan of Care and Treatment; Patient and Family will Accurately Verbalize Understanding of the Disease Process (Sheila Wynn RN) Interventions: Assess Motivation and Willingness of Patient/Family to Learn; Assess Preferred Learning Mode: One to One Instruction, Reading, Videos, Group Discussion or Demonstration; Assess Barriers to Learning: Pain, Emotional State, Language Barrier, Cognitive Impairment, Visual or Hearing Deficits; Assess Patient and Family Knowledge of Disease Process, Medications and Treatment; Discuss Therapy and/or Treatment Options, Describe Rationale Behind Management, Therapy and Treatment Recommendations; Instruct Patient and Family on Signs and Symptoms to Report; Instruct Patient and Family on Medication Effects and Side Effects; Provide Appropriate and Timely Education Using Multiple Techniques; Provide Patient and Family with Support Group Information and Resources; Give Clear and Thorough Explanations and Demonstrations (Sheila Wynn RN) Outcome: Patient and Family will Verbalize Understanding of Condition, Treatment and Signs and Symptoms to Report (Sheila Wynn RN) Status: Ongoing (Sheila Wynn RN) Outcome: Patient will Identify Perceived Learning Needs and Express Motivation to Learn (Sheila Wynn RN) Status: Ongoing (Sheila Wynn RN) Outcome: Patient will Verbalize Understanding of Desired Content, and/or Performs Desired Skill Prior to Discharge (Sheila Wynn RN) Status: Ongoing (Sheila Wynn RN) Infection State: Risk For (Sheila Wynn RN) Related To: Prolonged Labor or Induction; Premature/Prolonged Rupture of Membranes; Invasive Procedures (Sheila Wynn RN) Goal(s): The Patient will be Free of Infection, Vital Signs Stable and Lab Work within Normal Parameters (Sheila Wynn RN) Interventions: Instruct and Reinforce Proper Handwashing, Hygiene, and Care Techniques to Patient and Family; Monitor Vital Signs; Monitor Patient for the Following Signs of Infection: Fever, Abdominal Tenderness, Unusual Discharge; Monitor Aminiotic Fluid, Urine and Lochia for Color and Odor; Observe Wounds, Incisions and Invasive Line Sites for Redness, Drainage and Edema; Assess IV Sites per Hospital Policy; Monitor Lab and Test Results and Notify Provider of Abnormal Findings; Assess Nutritional Status and Promote Good Nutrition (Sheila Wynn RN) Outcome: Patient will Remain Free of Infection (Sheila Wynn RN) Status: Ongoing (Sheila Wynn RN) Outcome: Infection will be Recognized Early to Allow for Prompt Treatment (Sheila Wynn RN) Status: Ongoing (Sheila Wynn RN) Outcome: Patient will have Vital Signs Within Expected Range (Sheila Wynn RN) Status: Ongoing (Sheila Wynn RN) Fluid Volume State: Risk For (Sheila Wynn RN) Related To: Surgical Procedures; Prolonged Labor or Induction; Hemorrhage; Anesthesia (Sheila Wynn RN) Goal(s): Patient will Achieve and Maintain a Balanced Fluid Volume Status; Hemodynamically Stable (Sheila Wynn RN) Interventions: Monitor Vital Signs; Auscultate Breath Sounds; Monitor Patient for Skin Turgor, Mucous Membranes, Dry Skin, Weakness, Headaches and Confusion; Provide Oral Fluids as Ordered; Initiate and Maintain Intravenous Fluids as Ordered; Monitor Intake and Output as Indicated Per Patient Status; Accurately Measure Blood Loss; Monitor Lab and Test Results as Obtained and Notify Provider of Abnormal Findings; Monitor Patient's Weight (Sheila Wynn RN) Outcome: Patient will have Clear Lung Sounds (Sheila Wynn RN) Status: Ongoing (Sheila Wynn RN) Outcome: Patient will have Vital Signs within Expected Range (Sheila Wynn RN) Status: Ongoing (Sheila Wynn RN) Outcome: Urine Output will be within Expected Range (Sheila Wynn RN) Status: Ongoing (Sheila Wynn RN) Outcome: Patient will have Minimal Generalized or Upper Extremity Edema (Sheila Wynn RN) Status: Ongoing (Sheila Wynn RN) Injury State: Risk For (Sheila Wynn RN) Related To: Labor and Delivery Process; Anesthesia; Risk to Status; Uteroplacental Perfusion; Hemorrhage, Placenta Previa and or Placental Abruption (Sheila Wnyn RN) Goal(s): Patient will Remain Free from Injury (Sheila Wynn RN) Interventions: Monitoring as per Hospital Protocol; Assess Neurological Status; Perform Risk Assessment of Patients with Induction and ; Perform Fall Risk Assessment and Prevention per Hospital Protocol; Perform DVT Risk Assessment and Prophylaxis per Hospital Protocol; Ensure that Oxygen, Suction, and Resuscitation Medications and Equipment are Readily Available; Confirm Patient ID Prior to Procedure(s) and Medication Administration per Hospital Policy (Sheila Wynn RN) Outcome: Successful Fall Risk Prevention (Sheila Wynn RN) Status: Ongoing (Sheila Wynn RN) Outcome: Patient will Deliver Infant without Adverse [place] (Sheila Wynn RN) Status: Ongoing (Sheila Wynn RN) Outcome: Patient's Neurological Status will Remain Stable (Sheila Wynn RN) Status: Ongoing (Sheila Wynn RN) Impaired Skin Integrity State: Risk For (Sheila Wynn RN) Related To: Vaginal Delivery; Invasive Procedures (Sheila Wynn RN) Goal(s): Patient will Maintain Optimal Skin Integrity, Free of Breakdown, Injury or Infection (Sheila Wynn RN) Interventions: Complete Screening for Pressure Ulcer Risk and Initiate Protocol per Hospital Policy; Monitor Site of Skin Impairment for Color Changes, Redness, Swelling, Warmth, Pain or Other Signs of Infection; Encourage and Assist with Position Changes; Monitor Patient's Mobility Status; Provide Adequate Nutrition and Fluids; Teach Patient Appropriate Hygienic Care; Teach Patient/Family Skin Care Management (Sheila Wynn RN) Outcome: Patient will not have Evidence of Injury Such as Skin Breakdown, Scrapes, Cuts, or Bruising (Sheila Wynn RN) Status: Ongoing (Sheila Wynn RN) Outcome: Patient will Report Any Altered Sensation or Pain at Site of Skin Impairment (Sheila Wynn RN) Status: Ongoing (Sheila Wynn RN) Outcome: Patients Incisions and Wounds will be without Signs or Symptoms of Infection (Sheila Wynn RN) Status: Ongoing (Sheila Wynn RN) Outcome: Patient will Demonstrate Understanding of Plan to Heal Skin and Prevent Reinjury and Verbalize Risk Factors (Sheila Wynn RN) Status: Ongoing (Sheila Wynn RN) Parenting Impaired State: Risk For (Sheila Wynn RN) Related To: Apprehension Related to [place] Care (Sheila Wynn RN) Goal(s): Parents will Demonstrate Progressive Parenting Behaviors (Sheila Wynn RN) Interventions: Assess for Adequacy of Support Systems; Observe and Encourage Patient/Family Attachment and Bonding Activities and Provide Feedback; Assess Patient/Family Understanding of 's Condition and Provide Accurate Information About Condition, Treatment and Prognosis; Assess for Patient/Family Behaviors that May Indicate Lack of Attachment; Provide a Safe Non-judgmental Environment for Patient/Family to Discuss Concerns; Promote Patient/Family Cohesiveness by Encouraging Discussion and Problem Solving; Certified Medical Technician Referral as Indicated (Sheila Wynn RN) Outcome: Patient/Family will Discuss Their Fears and the Possibility of Difficulties with Parenting (Sheila Wynn RN) Status: Ongoing (Sheila Wynn RN) Outcome: Patient/Family will Exhibit Appropriate Bonding Behaviors with Infant (Sheila Wynn RN) Status: Ongoing (Sheila Wynn RN) Outcome: Patient/Family will Verbalize Positive Feelings and Demonstrate Affection and Caring Toward Infant (Sheila Wynn RN) Status: Ongoing (Sheila Wynn RN) Nutrition State: Risk For (Sheila Wynn RN) Related To: ; (Sheila Wynn RN) Goal(s): Patient will have an Intake of Nutrients Sufficient to Meet Metabolic Needs (Sheila Wynn RN) Interventions: Nutritional Screening and Assessment per Hospital Policy; Consult Structural Rigger for Further Assessment and Recommendations Regarding Food Preferences and Nutritional Support; Allow Patient to Plan and Order Diet when Possible; Monitor Laboratory Values That Indicate Nutritional Well-being; Consult Air Hoist Operator for Nutritional Support Regarding Requirements; Document Actual Weight Initially and Weekly (Do Not Estimate); Encourage Patient Participation in Maintaining a Food Log as Indicated; Educate Patient on the Importance of Maintaining an Adequate Caloric Intake (Sheila Wynn RN) Outcome: Patient will Receive Adequate Calories and Fluid Volume to Meet Metabolic Needs (Sheila Wynn RN) Status: Ongoing (Sheila Wynn RN) Outcome: Patient will Select Foods or Meals that Support Adequate Nutrition (Sheila Wynn RN) Status: Ongoing (Sheila Wynn RN) Grieving State: Not Applicable (Sheila Wynn RN) Additional Care Plan State: Risk For (Annotations: Data stored by Augustine on behalf of user) (Sheila Wynn RN)
--- NOTE | 2016-09-10 07:27 | Delivery Summary ---
Del Sum A-C Datetime Report Generated by CPN: 09/10/2016 07:27 ADMISSION DATA Chief Complaint: Uterine Contractions Admission Impression: Term, Intrauterine Admit Provider Comments: pt had preciptious delivery-see delivery note DELIVERY PERSONNEL Delivery Doctor:: Chantale Ornelas MD Labor and Delivery Nurse:: Lilly Gomez RNstatistics intern Nurse:: Sheila Wynn RN Nursery Nurse:: Chantale Damian RN Senior Information Systems Architect/FORMING ACID DUMPER: [facility] Additional Personnel: : Sandy Bingham RN MATERNAL INFORMATION Delivery Anesthesia: None Medications After Delivery: Pitocin 10 Units IM; Pitocin Bolus-Please Comment; Pitocin Drip 20 Units/1000ml NSS; Methergine 0.2mg IM; Other-Please Comment Meds After Delivery Comment: cytotec 1000mcg per rectum Estimated Blood Loss (ml): 800 Maternal Complications: Precipitous Labor (<3hrs); Hemorrhage Provider Comments: pt progressed to over 1st degree perineal lac of female infant with apgars 8 and 9. Head delivered OA. Shoulders and body delivered easily thereafter. HEALTH PROMOTION SPECIALIST/OP bulb suctioned. Cord clamped and cut. Placenta spont and intact. Atony ensued. Cytotec 1000mcg pr and methergine 1 amp im given after pit 10 mu IM. IV obtained and iv pit hanging now with good uterine tone. LABOR SUMMARY EDC: 09/08/2016 00:00 No. Babies in Womb: 1 Attempted: No Labor Anesthesia: None LABOR INFORMATION Reason for Induction: Not Applicable Onset of Labor: 09/09/2016 03:48 Complete Dilatation: 09/09/2016 05:14 Oxytocin: N/A Group B Beta Strep: Negative Antibiotics # of Doses: 0 Steroids Given: None Reason Steroids Not Administered: Not Applicable MEMBRANES Membranes Rupture Method: Artificial Rupture of Membranes: 09/09/2016 05:14 Length of Rupture (hr): 0.05 Amniotic Fluid Color: Light Meconium Amniotic Fluid Amount: Small Amniotic Fluid Odor: Normal STAGES OF LABOR Stage 1 hr: 1 Stage 1 min: 26 Stage 2 hr: 0 Stage 2 min: 3 Stage 3 hr: 0 Stage 3 min: 5 Total Time in Labor hr: 1 Total Time in Labor min: 34 VAGINAL DELIVERY Episiotomy: None Laceration Extension: First Degree Laceration Type: Perineal Laceration Repair: Yes Laceration Repair Note: with 2-0 chromic and 1 percent lidocaine Sponge Count Correct: N/A Sharps Count Correct: Yes CSECTION DELIVERY Primary Indication: N/A Secondary Indication: N/A CSection Incidence: N/A Labor: N/A Elective: N/A CSection Incision: N/A BABY A INFORMATION Infant Delivery Date/Time: 09/09/2016 05:17 Method of Delivery: Vaginal Born in Route : No : N/A Forceps: N/A Vacuum Extraction: N/A Shoulder Dystocia : No PRESENTATION/POSITION BABY A Presentation: Cephalic Cephalic Presentation: Vertex Vertex Position: Left Occipital Anterior Breech Presentation: N/A PLACENTA INFORMATION BABY A Placenta Delivery Time : 09/09/2016 05:22 Placenta Method of Delivery: Spontaneous Placenta Status: Delivered SCORES BABY A Heart Rate 1 min: >100 bpm Resp Effort 1 min: Good Cry Reflex Irritability 1 min: Cough or Sneeze or Pulls Away Muscle Tone 1 min: Active Motion Color 1 min: Blue/Pale Resuscitation Effort 1 min: Tactile Stimulation SCORE 1 MIN: 8 Heart Rate 5 min: >100 bpm Resp Effort 5 min: Good Cry Reflex Irritability 5 min: Cough or Sneeze or Pulls Away Muscle Tone 5 min: Active Motion Color 5 min: Body Leonidas, Extremities Blue Resuscitation Effort 5 min: Tactile Stimulation SCORE 5 MIN: 9 INFANT INFORMATION BABY A Gestational Age at Delivery: 40.1 Gestational Status: Full Term- 39- 40.6 Weeks Outcome : Liveborn Condition : Stable Sex: Female IDENTIFICATION BABY A Verification Date/Time: 09/09/2016 05:27 ID Band Number: [id number] Mother's Name Verified: Yes RN Verifying : Juan CAROLINA Glaser Additional Verifying Personnel: S CAROLINA Zapata WEIGHT/LENGTH BABY A Birthweight (gm): 3120 Infant Weight (lb): 6 Infant Weight (oz): 14 Infant Length (in): 20.00 Length (cm): 50.80 CORD INFORMATION BABY A No. Cord Vessels: 3 Nuchal Cord : N/A Cord Blood Taken: Yes-For Eval (Mom's Blood Type - or O+) Infant Suction: Mouth; Nose ASSESSMENT BABY A Infant Complications: Meconium Physical Findings at Delivery: Within Normal Limits Infant Respirations: Appears Normal Skin to Skin: Yes Skin to Skin Time (min): 30 Director Learning And Development/ALS Called : No Care By: CAROLINA Damian Transferred To: [facility] with Mother BABY B INFORMATION : N/A SIGNATURES Signature: with User ID: [email or web address]
[2016-09-10 07:53] LABS: HEMOGLOBIN 11.1 g/dL (12.0-15.5); HGB HCT DIFFERENCE 0.3; MEAN CORPUSCULAR HEMOGLOBIN 28.5 pg (27.0-33.4); MEAN CORPUSCULAR HGB CONC 33.5 g/dL (32.0-36.0); MEAN CORPUSCULAR VOLUME 85 fl (80-97); RED BLOOD COUNT 3.88 10^6/uL (3.72-5.28); RED CELL DISTRIBUTION WIDTH 13.6 % (11.5-14.0); WHITE BLOOD COUNT 13.2 10^3/uL (4.0-10.5)
[2016-09-10] MEDS: DOCUSATE SODIUM 100 MG CAPSULE PO SCH ×2 (09:34→17:06)
[2016-09-10] MEDS: FAMOTIDINE 20 MG TABLET PO SCH ×2 (09:34→21:16)
[2016-09-10] MEDS: SENNOSIDES/DOCUSATE 8.6-50 MG 1 EACH TABLET PO SCH (09:35)
[2016-09-10] MEDS: PRENATAL VITAMIN W-O CA NO5/FE FUMARATE/FA CAPSULE PO SCH (09:35)
[2016-09-10] MEDS: FERROUS SULFATE 325 MG TABLET PO SCH ×2 (09:35→17:06)
--- NOTE | 2016-09-10 11:15 | PDOC PROGRESS REPORT ---
Subjective-OB Subjective: Post Delivery Day: 41 year old. Denies any needs at this time Doing well, no c/o, , ambulating, scant bleeding, voiding Physical Exam (OB) Vital Signs: Temp Pulse Resp BP Pulse Ox 97.5 F 78 17 112/73 100 09/10/16 08:30 09/10/16 08:30 09/10/16 08:30 09/10/16 08:30 09/10/16 08:30 Intake & Output 09/09/16 09/10/16 09/11/16 06:59 06:59 06:59 Intake Total 1350 Balance 1350 Weight 71.75 kg - Lochia Lochia Amount: Small 10-25 ml Lochia Color: Rubra/Red - Abdomen Description: Soft Hernia Present: No Fundal Description: Firm, Midline Fundal Height: u/u - u/2 Objective-Diagnostic Laboratory: 09/10/16 07:40 09/09/16 09/10/16 12:19 07:40 WBC 17.0 H 13.2 H RBC 4.07 3.88 Hgb 11.6 L 11.1 L Hct 34.0 L 33.0 L MCV 84 85 MCH 28.6 28.5 MCHC 34.2 33.5 RDW 13.7 13.6 Plt Count 147 L 177 Seg Neutrophils % 80.7 H Lymphocytes % 13.4 Monocytes % 5.1 Eosinophils % 0.2 Basophils % 0.6 Absolute Neutrophils 13.7 H Absolute Lymphocytes 2.3 Absolute Monocytes 0.9 Absolute Eosinophils 0.0 Absolute Basophils 0.1 Assessment and Plan(PN) - Assessment and Plan (1) hemorrhage, third stage, delivered Is this a current diagnosis for this admission?: Yes (2) Delivery normal Is this a current diagnosis for this admission?: Yes (3) Gestational diabetes Qualifiers: Gestational diabetes mellitus control: diet-controlled Is this a current diagnosis for this admission?: Yes - Time Spent with Patient Time with patient: Less than 15 minutes Medications reviewed and adjusted accordingly: Yes - Disposition Anticipated Discharge: Home Within: within 24 hours
--- NOTE | 2016-09-10 18:01 | L&D General Admission ---
General Admit Datetime Report Generated by CPN: 09/10/2016 18:00 INFORMATION Patient Age: 41 (08/23/2016 12:48:QS system process) EDC: 09/08/2016 00:00 (08/23/2016 12:58:July Ectore, RNC) : 7 (08/23/2016 12:58:Julyarias Barneye, RNC) Para: 2 (08/23/2016 12:58:July Bellavance, RNC) Term: 2 (08/23/2016 12:58:July Bellavance, RNC) : 0 (08/23/2016 12:58:July Bellmiriamnce, RNC) Spontaneous Abortions: 4 (08/23/2016 12:58:July Ectore, RNC) Induced Abortions: 0 (08/23/2016 12:58:July Ectore, RNC) Livin (08/23/2016 12:58:Julyarias Sanchez, RNC) Cesareans: 0 (08/23/2016 12:58:July Bellavance, RNC) VBACs: 0 (08/23/2016 12:58:July Bellavance, RNC) Ectopic: 0 (08/23/2016 12:58:July Bellavance, RNC) Multiple Births: 0 (08/23/2016 12:58:July Bellavance, RNC) Baby, Number in Womb: 1 (08/23/2016 12:58:July Bellavance, RNC) CARE Primary Advertising Director: [facility] (08/23/2016 12:58:July Ectore, RNC) Month of 1st Visit: january (08/23/2016 12:58:Adri Parsons, RN) Adequate Care: Yes (08/23/2016 12:58:Adri Issa, RNC) Prepregnancy Weight (lb): 178 (08/23/2016 12:58:Adri Parsons RN) Prepregnancy Weight (kg): 80.9 (08/23/2016 12:58:QS system process) Height (in): 62 (09/10/2016 12:31:QS system process) ALLERGIES Medication Allergy: No (08/23/2016 12:58:July Bellavance, RNC) Medication Allergies: No Known Allergies (09/09/2016) (09/09/2016 08:01:QS system process) Latex Allergy: Latex Allergies (08/23/2016 12:58:July Bellavance, RNC) COMMUNICATION Primary Language: Turkmen (08/23/2016 12:58:Susan Awan RN) Medical Tx Preferred Language: Turkmen (08/23/2016 12:58:Susan Awan RN) Communication Barrier(s): None (08/23/2016 12:58:Susan Awan RN) DEMOGRAPHICS Address: [address] [place] [id number] (08/23/2016 12:48:QS system process) Zipcode: [phone] (08/23/2016 12:48:QS system process) Home (08/23/2016 12:48:QS system process) SSN: [id number] (08/23/2016 12:48:QS system process) Next of Kin Name: AURELIA SILVA (08/23/2016 12:48:QS system process) Next of Kin (08/23/2016 12:48:QS system process) Next of Kin Relationship: MO (08/23/2016 12:48:QS system process) Date of : 1975 (08/23/2016 12:48:QS system process) Marital Status: (08/23/2016 12:48:QS system process) Sex: Female (08/23/2016 12:48:QS system process) Race: (08/23/2016 12:48:QS system process) Ethnicity: Non- or (08/23/2016 12:48:QS system process) Episcopal: None (08/23/2016 12:48:QS system process) DRUG AND ALCOHOL USE Alcohol: No (08/23/2016 12:58:Lilly Gomez RN) Cigarettes: Current Everyday Smoker. [id number] (08/23/2016 12:58:Lilly Gomez RN) Advised to Stop Smoking: Yes (08/23/2016 12:58:Lilly Gomez RN) Marijuana: No (08/23/2016 12:58:Lilly Gomez RN) Cocaine: No (08/23/2016 12:58:Lilly Gomez RN) Other Illicit Drugs: No (08/23/2016 12:58:Lilly Gomez RN) VACCINE HISTORY Influenza Vaccine: No (08/23/2016 12:58:Lilly Gomez RN) Pneumococcal Vaccine: No (08/23/2016 12:58:Lilly Gomez RN) Tetanus Vaccine: No (08/23/2016 12:58:Adri Parsons [facility]) Tdap Vaccine: No (08/23/2016 12:58:Adri Tarkio [facility]) Hepatitis B Vaccine: Uncertain (08/23/2016 12:58:Adri [facility]) Party Plan Sales Unit Sales Leader: [facility] (08/23/2016 12:58:Lilly Gomez RN) Feeding Preference: Both (08/23/2016 12:58:Zayra Stafford RN) Benefit of Breast Feed Discussed: Yes (08/23/2016 12:58:Lilly Gomez RN) Circumcision: N/A (08/23/2016 12:58:Lilly Gomez RN) Classes Attended: No (08/23/2016 12:58:Lilly Gomez RN) Tubal Ligation: No (08/23/2016 12:58:Lilly Gomez RN) Tubal Authorization Signed: N/A (08/23/2016 12:58:Lilly Gomez RN) Consent: N/A (08/23/2016 12:58:Lilly Gomez RN) Consent Signed: Yes (08/23/2016 12:58:Lilly Gomez RN) Pain Management Plans: None (08/23/2016 12:58:Susan Awan RN) Plans for Labor and Delivery: None (08/23/2016 12:58:Susan Awan RN) Support Person: Ferdinand Silva (08/23/2016 12:58:Lilly Gomez RN) Support Person Relationship: Other (08/23/2016 12:58:Lilly Gomez RN) Other Relationship: daughter (08/23/2016 12:58:Lilly Gomez RN) Cultural/Spritual Practice: Yes (08/23/2016 12:58:Lilly Gomez RN) Spir/Cult Dietary Needs: Yes (08/23/2016 12:58:Lilly Gomez RN) LIVING SITUATION/DISCHARGE PLAN Living Arrangements: House (08/23/2016 12:58:Lilly Gomez RN) Adequate Access to:: Electric; Heat; Refrigeration; Plumbing/Running water; Phone; Transportation (08/23/2016 12:58:Lilly Gomez RN) WIC Program: Yes (08/23/2016 12:58:Lilly Gomez RN) Discharge Induction Machine Operator Person: Aurelia Silva (08/23/2016 12:58:Lilly Gomez RN) Person to Help after Discharge: Aurelia Pacheco08/23/2016 12:58:Lilly Gomez RN) Currently Using Commun Resources: Yes (08/23/2016 12:58:Lilly Gomez RN) Outside Agency/Coremaker Machine: No (08/23/2016 12:58:Lilly Goemz RN) Car Seat for Discharge: Yes (08/23/2016 12:58:Lilly Gomez RN) Adoption Requested: No (08/23/2016 12:58:Lilly Gomez RN) Pt Contact w/infant Post : N/A (08/23/2016 12:58:Lilly Gomez RN) LABS Blood Type: O Positive (08/23/2016 12:58:Susan Awan RN) Antibody Screen: Negative (08/23/2016 12:58:Susan Awan RN) Rho(G) this : Not Applicable (08/23/2016 12:58:Susan Awan RN) Hemoglobin: 11.1 L (09/10/2016 07:40:QS system process) Hematocrit: 33.0 L (09/10/2016 07:40:QS system process) MCV: 85 (09/10/2016 07:40:QS system process) Group Beta Strep: Negative (08/23/2016 12:58:Susan Awan RN) Gonorrhea: Negative (08/23/2016 12:58:Susan Awan RN) Chlamydia: Negative (08/23/2016 12:58:Susan Awan RN) RPR/VDRL: Nonreactive (08/23/2016 12:58:Susan Awan RN) HIV Exposure Test: Negative (08/23/2016 12:58:JAYLON Nunes) HIV Results: Negative (08/23/2016 12:58:Susan Awan RN) Hepatitis B: Negative (08/23/2016 12:58:Susan Awan RN) Rubella: Immune (08/23/2016 12:58:Susan Awan RN) Varicella: Non Susceptible (08/23/2016 12:58:Susan Awan RN) OB/PREVIOUS HISTORY Previous Procedures: Ultrasound (08/23/2016 12:58:Susan Awan RN) Current Procedures: Ultrasound; NST (08/23/2016 12:58:Susan Awan RN) History of Previous : No (08/23/2016 12:58:Lilly Gomez RN) History of Gestational Diabetes: Yes (08/23/2016 12:58:Lilly Gomez RN) History of PIH: No (08/23/2016 12:58:Lilly Gomez RN) History of Incompetent Cervix: No (08/23/2016 12:58:Lilly Gomez RN) History of Placenta Previa/Abrup: No (08/23/2016 12:58:Lilly Gomez RN) History of Macrosomia: No (08/23/2016 12:58:Lilly Gomez RN) History of IUGR: No (08/23/2016 12:58:Lilly Gomez RN) History of Hemorrhage: No (08/23/2016 12:58:Lilly Gomez RN) History of Loss/Stillborn: No (08/23/2016 12:58:Lilly Gomez RN) History of : No (08/23/2016 12:58:Lilly Gomez RN) History of D (Rh) Sensitization: No (08/23/2016 12:58:Lilly Gomez RN) History Recurrent Loss/Stillborn: No (08/23/2016 12:58:Lilly Gomez RN) History Depression/PP Depression: No (08/23/2016 12:58:Lilly Gomez RN) History of Uterine Anomaly/SHAYNA: No (08/23/2016 12:58:Lilly Gomez RN) History of Infertility: No (08/23/2016 12:58:Lilly Gomez RN) History of ART Treatment: No (08/23/2016 12:58:Lilly Gomez RN) History of SHAYNA: No (08/23/2016 12:58:Lilly Gomez RN) MEDICAL HISTORY Med Hx Diabetes: No (08/23/2016 12:58:Lilly Gomez RN) Med Hx Hypertension: No (08/23/2016 12:58:Lilly Gomez RN) Med Hx Heart Disease: No (08/23/2016 12:58:Lilly Gomez RN) Med Hx Autoimmune Disorder: No (08/23/2016 12:58:Lilly Gomez RN) Med Hx Kidney Disease/UTI: No (08/23/2016 12:58:Lilly Gomez RN) Med Hx Neurologic/Epilepsy: No (08/23/2016 12:58:Lilly Gomez RN) Med Hx Psychiatric Disorders: No (08/23/2016 12:58:Lilly Gomez RN) Med Hx Hepatitis/Liver Disease: No (08/23/2016 12:58:Lilly Gomez RN) Med Hx Varicosities/Phlebitis: No (08/23/2016 12:58:Lilly Gomez RN) Med Hx Thyroid Dysfunction: No (08/23/2016 12:58:Lilly Gomez RN) Med Hx Trauma/Violence: No (08/23/2016 12:58:Lilly Gomez RN) Med Hx Blood Transfusion: No (08/23/2016 12:58:Lilly Gomez RN) Med Hx Pulmonary (Asthma,TB): No (08/23/2016 12:58:Lilly Gomez RN) Med Hx Breast: No (08/23/2016 12:58:Lilly Gomez RN) Med Hx EPIC PROFESSIONAL Surgery: No (08/23/2016 12:58:Lilly Gomez RN) Med Hx Hospitalization/Surgery: No (08/23/2016 12:58:Lilly Gomez RN) Med Hx Anesthetic Complications: No (08/23/2016 12:58:Lilly Gomez RN) Med Hx Abnormal Pap Smear: Yes (08/23/2016 12:58:Lilly Gomez RN) Other Medical Diseases: No (08/23/2016 12:58:Lilly Gomez RN) Med Hx Significant Family Hx: No (08/23/2016 12:58:Lilly Gomez RN) INFECTIOUS HISTORY Inf Hx Gonorrhea: Yes (08/23/2016 12:58:Lilly Gomez RN) Inf Hx Chlamydia: Yes (08/23/2016 12:58:Lilly Gomez RN) Inf Hx Syphilis: No (08/23/2016 12:58:Lilly Gomez RN) Inf Hx HIV/AIDS: No (08/23/2016 12:58:Lilly Gomez RN) Inf Hx Human Papilloma Virus: Yes (08/23/2016 12:58:Lilly Gomez RN) Inf Hx Pt/Partner Genital Herpes: No (08/23/2016 12:58:Lilly Gomez RN) Inf Hx Tuberculosis/Exposure: No (08/23/2016 12:58:Lilly Gomez RN) Inf Hx Hepatitis B,C: No (08/23/2016 12:58:Lilly Gomez RN) Inf Hx Rash or Viral Illness: No (08/23/2016 12:58:Lilly Gomez RN) GENETIC HISTORY Gen Hx Age >=35 at NOBLE: No (08/23/2016 12:58:Lilly Gomez RN) Gen Hx Thalassemia: No (08/23/2016 12:58:Lilly Gomez RN) Gen Hx Congenital Heart Defect: No (08/23/2016 12:58:Lilly Gomez RN) Gen Hx Neural Tube Defect: No (08/23/2016 12:58:Lilly Gomez RN) Gen Hx Down's Syndrome: No (08/23/2016 12:58:Lilly Gomez RN) Gen Hx Kee-Sachs: No (08/23/2016 12:58:Lilly Gomez RN) Gen Hx Zhen: No (08/23/2016 12:58:Lilly Gomez RN) Gen Hx Familial Dysautonomia: No (08/23/2016 12:58:Lilly Gomez RN) Gen Hx Sickle Cell Disease/Trait: No (08/23/2016 12:58:Lilly Gomez RN) Gen Hx Hemophilia/Blood Disorder: No (08/23/2016 12:58:Lilly Gomez RN) Gen Hx Muscular Dystrophy: No (08/23/2016 12:58:Lilly Gomez RN) Gen Hx Cystic Fibrosis: No (08/23/2016 12:58:Lilly Gomez RN) Gen Hx Huntingtons Chorea: No (08/23/2016 12:58:Lilly Gomez RN) Gen Hx Mental Retardation/Autism: No (08/23/2016 12:58:Lilly Gomez RN) Gen Hx Tested for Fragile X: No (08/23/2016 12:58:Lilly Gomez RN) Gen Hx Other Inher/Chromosomal: No (08/23/2016 12:58:Lilly Gomez RN) Gen Hx Maternal Metabolic DO: No (08/23/2016 12:58:Lilly Gomez RN) Gen Hx Pt Father or FOB Defect: No (08/23/2016 12:58:Lilly Gomez RN) Gen Hx Other Genetic History: No (08/23/2016 12:58:Lilly Gomez RN) Gen Hx Drugs/Meds since LMP: No (08/23/2016 12:58:Lilly Gomez RN)
--- NOTE | 2016-09-10 18:01 | L&D Current Admission ---
Current Admit Datetime Report Generated by CPN: 09/10/2016 18:00 ADMISSION INFORMATION Current Admit Date/Time: 09/09/2016 05:10 (09/09/2016 05:50:Lilly Gomez RN) Reason for Admission: Onset of Labor (09/09/2016 05:50:Lilly Gomze RN) Chief Complaint: Contractions (Annotations: bloody show) (09/09/2016 05:08:Lilly Gomez RN) EGA per Dates: 40.1 (09/09/2016 05:50:QS system process) Method of Arrival: Ambulatory (09/09/2016 05:50:Lilly Gomez RN) Reason for Induction: Not Applicable (09/09/2016 05:50:Lilly Gomez RN) Records Available: Yes (09/09/2016 05:50:Lilly Gomez RN) General Admission Information: Reviewed (09/09/2016 05:50:Lilly Gomez RN) BELONGINGS/ADVANCED DIRECTIVES Other Belongings: clothes, phone, see paper belongings (09/09/2016 05:50:Lilly Gomez RN) Disposition of Belongings: Kept with Patient (09/09/2016 05:50:Lilly Gomez RN) Advance Direct for Healthcare: No, and Wants No Information (09/09/2016 05:50:Lilly Gomez RN) Durable Power of Toolsmith: No (09/09/2016 05:50:Lilly Gomez RN) Organ Donor: Yes (09/09/2016 05:50:Lilly Gomez RN) Pt Rights Information Given: Yes (09/09/2016 05:50:Lilly Gomez RN) Pt Understands Pt Rights: Yes (09/09/2016 05:50:Lilly Gomez RN) LEARNING ASSESSMENT Knowledge Level: Understands L_D Process (09/09/2016 05:50:Lilly Gomez RN) Learning Readiness: Motivated (09/09/2016 05:50:Lilly Gomez RN) Learning Needs: Labor and Delivery Process; Pain Management; Symptoms to Report; Treatment Plan; Medication; Diagnosis; Nutrition; Equipment; Care; Community Resources (09/09/2016 05:50:Lilly Gomez RN) DOMESTIC VIOLANCE SCREENING Dom Viol Threatened/Hurt: No (09/09/2016 05:50:Lilly Gomez RN) Hx of Abuse/Neglect past 2yrs: No (09/09/2016 05:50:Lilly Gomez RN) Feel Unsafe Going Home: No (09/09/2016 05:50:Lilly Gomez RN) Addt'l Observ Indicating Abuse: No (09/09/2016 05:50:Lilly Gomez RN) Reason Unable to Complete Screen: N/A, Screen Completed (09/09/2016 05:50:Lilly Gomez RN) Considered Personal Harm/Suicide: No (09/09/2016 05:50:Lilly Gomez RN) NUTRITIONAL/FUNCTIONAL SCREENING Problem with Appetite >5 Days: No (09/09/2016 05:50:Lilly Gomez RN) Chew/Swallow Difficulties: No (09/09/2016 05:50:Lilly Gomez RN) Inappropriate Wt Gain/Loss: No (09/09/2016 05:50:Lilly Gomez RN) Presence Skin Breakdown/Ulcer: No (09/09/2016 05:50:Lilly Gomez RN) Special Diet: No (09/09/2016 05:50:Lilly Gomez RN) Pt Requests Senior Compliance Analyst Visit: No (09/09/2016 05:50:Lilly Gomez RN) Hx of Any of the Following?: N/A (09/09/2016 05:50:Lilly Gomez RN) New Diagnosis of: N/A (09/09/2016 05:50:Lilly Gomez RN) Requires Assist w/Ambulation: No (09/09/2016 05:50:Lilly Gomez RN) Uses Assist Device to Ambulate: No (09/09/2016 05:50:Lilly Gomez RN) Pt Requires Help w/ADL's: No (09/09/2016 05:50:Lilly Gomez RN)
[2016-09-11] MEDS: ACETAMINOPHEN WITH CODEINE #3 TABLET PO PRN ×2 (01:57→07:46)
--- NOTE | 2016-09-11 06:01 | L&D General Admission ---
General Admit Datetime Report Generated by CPN: 09/11/2016 06:00 INFORMATION Patient Age: 41 (08/23/2016 12:48:QS system process) EDC: 09/08/2016 00:00 (08/23/2016 12:58:July Ectore, RNC) : 7 (08/23/2016 12:58:Julyarias Barneye, RNC) Para: 2 (08/23/2016 12:58:July Bellavance, RNC) Term: 2 (08/23/2016 12:58:July Bellavance, RNC) : 0 (08/23/2016 12:58:July Bellmiriamnce, RNC) Spontaneous Abortions: 4 (08/23/2016 12:58:July Ectore, RNC) Induced Abortions: 0 (08/23/2016 12:58:July Bellmiriamnce, RNC) Livin (08/23/2016 12:58:Julyarias Sanchez, RNC) Cesareans: 0 (08/23/2016 12:58:July Bellavance, RNC) VBACs: 0 (08/23/2016 12:58:July Bellavance, RNC) Ectopic: 0 (08/23/2016 12:58:July Bellavance, RNC) Multiple Births: 0 (08/23/2016 12:58:July Bellavance, RNC) Baby, Number in Womb: 1 (08/23/2016 12:58:July Bellavance, RNC) CARE Primary Account Technician: [facility] (08/23/2016 12:58:July Ectore, RNC) Month of 1st Visit: january (08/23/2016 12:58:Adri Parsons, RN) Adequate Care: Yes (08/23/2016 12:58:Adri Issa, RNC) Prepregnancy Weight (lb): 178 (08/23/2016 12:58:Adri Parsons RN) Prepregnancy Weight (kg): 80.9 (08/23/2016 12:58:QS system process) Height (in): 62 (09/10/2016 12:31:QS system process) ALLERGIES Medication Allergy: No (08/23/2016 12:58:July Bellavance, RNC) Medication Allergies: No Known Allergies (09/09/2016) (09/09/2016 08:01:QS system process) Latex Allergy: Latex Allergies (08/23/2016 12:58:July Bellavance, RNC) COMMUNICATION Primary Language: Palauan (08/23/2016 12:58:Susan Awan RN) Medical Tx Preferred Language: Palauan (08/23/2016 12:58:Susan Awan RN) Communication Barrier(s): None (08/23/2016 12:58:Susan Awan RN) DEMOGRAPHICS Address: [address] [place] [id number] (08/23/2016 12:48:QS system process) Zipcode: [phone] (08/23/2016 12:48:QS system process) Home (08/23/2016 12:48:QS system process) SSN: [id number] (08/23/2016 12:48:QS system process) Next of Kin Name: AURELIA SILVA (08/23/2016 12:48:QS system process) Next of Kin (08/23/2016 12:48:QS system process) Next of Kin Relationship: MO (08/23/2016 12:48:QS system process) Date of : 1975 (08/23/2016 12:48:QS system process) Marital Status: (08/23/2016 12:48:QS system process) Sex: Female (08/23/2016 12:48:QS system process) Race: (08/23/2016 12:48:QS system process) Ethnicity: Non- or (08/23/2016 12:48:QS system process) Oriental Orthodox: None (08/23/2016 12:48:QS system process) DRUG AND ALCOHOL USE Alcohol: No (08/23/2016 12:58:Lilly Gomez RN) Cigarettes: Current Everyday Smoker. [id number] (08/23/2016 12:58:Lilly Gomez RN) Advised to Stop Smoking: Yes (08/23/2016 12:58:Lilly Gomez RN) Marijuana: No (08/23/2016 12:58:Lilly Gomez RN) Cocaine: No (08/23/2016 12:58:Lilly Gomez RN) Other Illicit Drugs: No (08/23/2016 12:58:Lilly Gomez RN) VACCINE HISTORY Influenza Vaccine: No (08/23/2016 12:58:Lilly Gomez RN) Pneumococcal Vaccine: No (08/23/2016 12:58:Lilly Gomez RN) Tetanus Vaccine: No (08/23/2016 12:58:Adri Parsons [facility]) Tdap Vaccine: No (08/23/2016 12:58:Adri [place] [facility]) Hepatitis B Vaccine: Uncertain (08/23/2016 12:58:Adri [facility]) Supervisor [employer]: [facility] (08/23/2016 12:58:Lilly Gomez RN) Feeding Preference: Both (08/23/2016 12:58:Zayra Stafford RN) Benefit of Breast Feed Discussed: Yes (08/23/2016 12:58:Lilly Gomez RN) Circumcision: N/A (08/23/2016 12:58:Lilly Gomez RN) Classes Attended: No (08/23/2016 12:58:Lilly Gomez RN) Tubal Ligation: No (08/23/2016 12:58:Lilly Gomez RN) Tubal Authorization Signed: N/A (08/23/2016 12:58:Lilly Gomez RN) Consent: N/A (08/23/2016 12:58:Lilly Gomez RN) Consent Signed: Yes (08/23/2016 12:58:Lilly Gomez RN) Pain Management Plans: None (08/23/2016 12:58:Susan Awan RN) Plans for Labor and Delivery: None (08/23/2016 12:58:Susan Awan RN) Support Person: Ferdinand Silva (08/23/2016 12:58:Lilly Gomez RN) Support Person Relationship: Other (08/23/2016 12:58:Lilly Gomez RN) Other Relationship: daughter (08/23/2016 12:58:Lilly Gomez RN) Cultural/Spritual Practice: Yes (08/23/2016 12:58:Lilly Gomez RN) Spir/Cult Dietary Needs: Yes (08/23/2016 12:58:Lilly Gomez RN) LIVING SITUATION/DISCHARGE PLAN Living Arrangements: House (08/23/2016 12:58:Lilly Gomez RN) Adequate Access to:: Electric; Heat; Refrigeration; Plumbing/Running water; Phone; Transportation (08/23/2016 12:58:Lilly Gomez RN) WIC Program: Yes (08/23/2016 12:58:Lilly Gomez RN) Discharge Back Up Worker Person: Aurelia Silva (08/23/2016 12:58:Lilly Gomez RN) Person to Help after Discharge: Aurelia Pacheco08/23/2016 12:58:iLlly Gomez RN) Currently Using Commun Resources: Yes (08/23/2016 12:58:Lilly Gomez RN) Outside Agency/Acid Retort Operator: No (08/23/2016 12:58:Lilly Gomez RN) Car Seat for Discharge: Yes (08/23/2016 12:58:Lilly Gomez RN) Adoption Requested: No (08/23/2016 12:58:Lilly Gomez RN) Pt Contact w/infant Post : N/A (08/23/2016 12:58:Lilly Gomez RN) LABS Blood Type: O Positive (08/23/2016 12:58:Susan Awan RN) Antibody Screen: Negative (08/23/2016 12:58:Susan Awan RN) Rho(G) this : Not Applicable (08/23/2016 12:58:Susan Awan RN) Hemoglobin: 11.1 L (09/10/2016 07:40:QS system process) Hematocrit: 33.0 L (09/10/2016 07:40:QS system process) MCV: 85 (09/10/2016 07:40:QS system process) Group Beta Strep: Negative (08/23/2016 12:58:Susan Awan RN) Gonorrhea: Negative (08/23/2016 12:58:Susan Awan RN) Chlamydia: Negative (08/23/2016 12:58:Susan Awan RN) RPR/VDRL: Nonreactive (08/23/2016 12:58:Susan Awan RN) HIV Exposure Test: Negative (08/23/2016 12:58:JAYLON Nunes) HIV Results: Negative (08/23/2016 12:58:Susan Awan RN) Hepatitis B: Negative (08/23/2016 12:58:Susan Awan RN) Rubella: Immune (08/23/2016 12:58:Susan Awan RN) Varicella: Non Susceptible (08/23/2016 12:58:Susan Awan RN) OB/PREVIOUS HISTORY Previous Procedures: Ultrasound (08/23/2016 12:58:Susan Awan RN) Current Procedures: Ultrasound; NST (08/23/2016 12:58:Susan Awan RN) History of Previous : No (08/23/2016 12:58:Lilly Gomez RN) History of Gestational Diabetes: Yes (08/23/2016 12:58:Lilly Gomez RN) History of PIH: No (08/23/2016 12:58:Lilly Gomez RN) History of Incompetent Cervix: No (08/23/2016 12:58:Lilly Gomez RN) History of Placenta Previa/Abrup: No (08/23/2016 12:58:Lilly Gomez RN) History of Macrosomia: No (08/23/2016 12:58:Lilly Gomez RN) History of IUGR: No (08/23/2016 12:58:Lilly Gomez RN) History of Hemorrhage: No (08/23/2016 12:58:Lilly Gomez RN) History of Loss/Stillborn: No (08/23/2016 12:58:Lilly Gomez RN) History of : No (08/23/2016 12:58:Lilly Gomez RN) History of D (Rh) Sensitization: No (08/23/2016 12:58:Lilly Gomez RN) History Recurrent Loss/Stillborn: No (08/23/2016 12:58:Lilly Gomez RN) History Depression/PP Depression: No (08/23/2016 12:58:Lilly Gomez RN) History of Uterine Anomaly/SHAYNA: No (08/23/2016 12:58:Lilly Gomez RN) History of Infertility: No (08/23/2016 12:58:Lilly Gomez RN) History of ART Treatment: No (08/23/2016 12:58:Lilly Gomez RN) History of SHAYNA: No (08/23/2016 12:58:Lilly Gomez RN) MEDICAL HISTORY Med Hx Diabetes: No (08/23/2016 12:58:Lilly Gomez RN) Med Hx Hypertension: No (08/23/2016 12:58:Lilly Gomez RN) Med Hx Heart Disease: No (08/23/2016 12:58:Lilly Gomez RN) Med Hx Autoimmune Disorder: No (08/23/2016 12:58:Lilly Gomez RN) Med Hx Kidney Disease/UTI: No (08/23/2016 12:58:Lilly Gomez RN) Med Hx Neurologic/Epilepsy: No (08/23/2016 12:58:Lilly Gomez RN) Med Hx Psychiatric Disorders: No (08/23/2016 12:58:Lilly Gomez RN) Med Hx Hepatitis/Liver Disease: No (08/23/2016 12:58:Lilly Gomez RN) Med Hx Varicosities/Phlebitis: No (08/23/2016 12:58:Lilly Gomez RN) Med Hx Thyroid Dysfunction: No (08/23/2016 12:58:Lilly Gomez RN) Med Hx Trauma/Violence: No (08/23/2016 12:58:Lilly Gomez RN) Med Hx Blood Transfusion: No (08/23/2016 12:58:Lilly Gomez RN) Med Hx Pulmonary (Asthma,TB): No (08/23/2016 12:58:Lilly Gomez RN) Med Hx Breast: No (08/23/2016 12:58:Lilly Gomez RN) Med Hx MAINTENANCE TRUCK DRIVER Surgery: No (08/23/2016 12:58:Lilly Gomez RN) Med Hx Hospitalization/Surgery: No (08/23/2016 12:58:Lilly Gomez RN) Med Hx Anesthetic Complications: No (08/23/2016 12:58:Lilly Gomez RN) Med Hx Abnormal Pap Smear: Yes (08/23/2016 12:58:Lilly Gomez RN) Other Medical Diseases: No (08/23/2016 12:58:Lilly Gomez RN) Med Hx Significant Family Hx: No (08/23/2016 12:58:Lilly Gomez RN) INFECTIOUS HISTORY Inf Hx Gonorrhea: Yes (08/23/2016 12:58:Lilly Gomez RN) Inf Hx Chlamydia: Yes (08/23/2016 12:58:Lilly Gomez RN) Inf Hx Syphilis: No (08/23/2016 12:58:Lilly Gomez RN) Inf Hx HIV/AIDS: No (08/23/2016 12:58:Lilly Gomez RN) Inf Hx Human Papilloma Virus: Yes (08/23/2016 12:58:Lilly Gomez RN) Inf Hx Pt/Partner Genital Herpes: No (08/23/2016 12:58:Lilly Gomez RN) Inf Hx Tuberculosis/Exposure: No (08/23/2016 12:58:Lilly Gomez RN) Inf Hx Hepatitis B,C: No (08/23/2016 12:58:Lilly Gomez RN) Inf Hx Rash or Viral Illness: No (08/23/2016 12:58:Lilly Gomez RN) GENETIC HISTORY Gen Hx Age >=35 at NOBLE: No (08/23/2016 12:58:Lilly Gomez RN) Gen Hx Thalassemia: No (08/23/2016 12:58:Lilly Gomez RN) Gen Hx Congenital Heart Defect: No (08/23/2016 12:58:Lilly Gomez RN) Gen Hx Neural Tube Defect: No (08/23/2016 12:58:Lilly Gomez RN) Gen Hx Down's Syndrome: No (08/23/2016 12:58:Lilly Gomez RN) Gen Hx Kee-Sachs: No (08/23/2016 12:58:Lilly Gomez RN) Gen Hx Zhen: No (08/23/2016 12:58:Lilly Gomez RN) Gen Hx Familial Dysautonomia: No (08/23/2016 12:58:Lilly Gomez RN) Gen Hx Sickle Cell Disease/Trait: No (08/23/2016 12:58:Lilly Gomez RN) Gen Hx Hemophilia/Blood Disorder: No (08/23/2016 12:58:Lilly Gomez RN) Gen Hx Muscular Dystrophy: No (08/23/2016 12:58:Lilly Gomez RN) Gen Hx Cystic Fibrosis: No (08/23/2016 12:58:Lilly Gomez RN) Gen Hx Huntingtons Chorea: No (08/23/2016 12:58:Lilly Gomez RN) Gen Hx Mental Retardation/Autism: No (08/23/2016 12:58:Lilly Gomez RN) Gen Hx Tested for Fragile X: No (08/23/2016 12:58:Lilly Gomez RN) Gen Hx Other Inher/Chromosomal: No (08/23/2016 12:58:Lilly Gomez RN) Gen Hx Maternal Metabolic DO: No (08/23/2016 12:58:Lilly Gomez RN) Gen Hx Pt Father or FOB Defect: No (08/23/2016 12:58:Lilly Gomez RN) Gen Hx Other Genetic History: No (08/23/2016 12:58:Lilly Gomez RN) Gen Hx Drugs/Meds since LMP: No (08/23/2016 12:58:Lilly Gomez RN)
--- NOTE | 2016-09-11 06:01 | L&D Current Admission ---
Current Admit Datetime Report Generated by CPN: 09/11/2016 06:00 ADMISSION INFORMATION Current Admit Date/Time: 09/09/2016 05:10 (09/09/2016 05:50:Lilly Gomez RN) Reason for Admission: Onset of Labor (09/09/2016 05:50:Lilly Gomez RN) Chief Complaint: Contractions (Annotations: bloody show) (09/09/2016 05:08:Lilly Gomez RN) EGA per Dates: 40.1 (09/09/2016 05:50:QS system process) Method of Arrival: Ambulatory (09/09/2016 05:50:Lilly Gomez RN) Reason for Induction: Not Applicable (09/09/2016 05:50:Lilly Gomez RN) Records Available: Yes (09/09/2016 05:50:Lilly Gomez RN) General Admission Information: Reviewed (09/09/2016 05:50:Lilly Gomez RN) BELONGINGS/ADVANCED DIRECTIVES Other Belongings: clothes, phone, see paper belongings (09/09/2016 05:50:Lilly Gomez RN) Disposition of Belongings: Kept with Patient (09/09/2016 05:50:Lilly Gomez RN) Advance Direct for Healthcare: No, and Wants No Information (09/09/2016 05:50:Lilly Gomez RN) Durable Power of Office Support Associate: No (09/09/2016 05:50:Lilly Gomez RN) Organ Donor: Yes (09/09/2016 05:50:Lilly Gomez RN) Pt Rights Information Given: Yes (09/09/2016 05:50:Lilly Gomez RN) Pt Understands Pt Rights: Yes (09/09/2016 05:50:Lilly Gomez RN) LEARNING ASSESSMENT Knowledge Level: Understands L_D Process (09/09/2016 05:50:Lilly Gomez RN) Learning Readiness: Motivated (09/09/2016 05:50:Lilly Gomez RN) Learning Needs: Labor and Delivery Process; Pain Management; Symptoms to Report; Treatment Plan; Medication; Diagnosis; Nutrition; Equipment; Care; Community Resources (09/09/2016 05:50:Lilly Gomez RN) DOMESTIC VIOLANCE SCREENING Dom Viol Threatened/Hurt: No (09/09/2016 05:50:Lilly Gomez RN) Hx of Abuse/Neglect past 2yrs: No (09/09/2016 05:50:Lilly Gomez RN) Feel Unsafe Going Home: No (09/09/2016 05:50:Lilly Gomez RN) Addt'l Observ Indicating Abuse: No (09/09/2016 05:50:Lilly Gomez RN) Reason Unable to Complete Screen: N/A, Screen Completed (09/09/2016 05:50:Lilly Gomez RN) Considered Personal Harm/Suicide: No (09/09/2016 05:50:Lilly Gomez RN) NUTRITIONAL/FUNCTIONAL SCREENING Problem with Appetite >5 Days: No (09/09/2016 05:50:Lilly Gomez RN) Chew/Swallow Difficulties: No (09/09/2016 05:50:Lilly Gomez RN) Inappropriate Wt Gain/Loss: No (09/09/2016 05:50:Lilly Gomez RN) Presence Skin Breakdown/Ulcer: No (09/09/2016 05:50:Lilly Gomez RN) Special Diet: No (09/09/2016 05:50:Lilly Gomez RN) Pt Requests Senior Linux Unix Administrator Visit: No (09/09/2016 05:50:Lilly Gomez RN) Hx of Any of the Following?: N/A (09/09/2016 05:50:Lilly Gomez RN) New Diagnosis of: N/A (09/09/2016 05:50:Lilly Gomez RN) Requires Assist w/Ambulation: No (09/09/2016 05:50:Lilly Gomez RN) Uses Assist Device to Ambulate: No (09/09/2016 05:50:Lilly Gomez RN) Pt Requires Help w/ADL's: No (09/09/2016 05:50:Lilly Gomez RN)
[2016-09-11] MEDS: IBUPROFEN 800 MG TABLET PO SCH ×2 (06:04→13:12)
[2016-09-11] MEDS: FAMOTIDINE 20 MG TABLET PO SCH (10:24)
[2016-09-11] MEDS: SENNOSIDES/DOCUSATE 8.6-50 MG 1 EACH TABLET PO SCH (10:24)
[2016-09-11] MEDS: DOCUSATE SODIUM 100 MG CAPSULE PO SCH (10:24)
[2016-09-11] MEDS: PRENATAL VITAMIN W-O CA NO5/FE FUMARATE/FA CAPSULE PO SCH (10:25)
[2016-09-11] MEDS: FERROUS SULFATE 325 MG TABLET PO SCH (10:25)
[2016-09-11 12:56] VITALS: BP 122/78
--- NOTE | 2016-09-16 13:51 | PDOC DISCHARGE SUMMARY ---
Final Diagnosis Discharge Date: 09/11/16 - Final Diagnosis (1) Delivery normal Is this a current diagnosis for this admission?: Yes (2) Gestational diabetes Is this a current diagnosis for this admission?: Yes (3) hemorrhage, third stage, delivered Is this a current diagnosis for this admission?: Yes Discharge Data - Discharge Medication Home Medications: Pnv with Ca,No.72/Iron/FA [ Plus Tablet] 1 tab PO DAILY 08/23/16 Ibuprofen [Motrin 800 mg Tablet] 800 mg PO Q8 #90 tablet 09/11/16 Reason(s) for Admission: Onset of Labor, Advanced Maternal Age Procedures: NST Intrapartum Procedure(s): Spontaneous Vaginal Delivery - Diagnosis Test Laboratory: Temp Pulse Resp BP Pulse Ox 98.3 F 81 16 123/83 99 09/11/16 08:31 09/11/16 08:31 09/11/16 08:31 09/11/16 08:31 09/11/16 08:31 09/09/16 09/09/16 09/09/16 06:20 06:20 12:19 RBC 4.60 4.07 Hgb 13.1 11.6 L Hct 38.6 34.0 L Urine Opiates Screen NEGATIVE 09/10/16 07:40 RBC 3.88 Hgb 11.1 L Hct 33.0 L Urine Opiates Screen - Discharge information/Instructions Discharge Activity: Activity As Tolerated Discharge Diet: Regular Disposition: HOME, SELF-CARE Follow up with: [facility] in: 4
== END 2016-09-11 13:57 | disposition home or self-care (01) | DRG 774 ==
LOC: LC 04:43 → LR 05:09 → 2S 08:11
PROVIDERS: ADMIT Specialist; ATTEND Specialist
PROC: 10E0XZZ Delivery of Products of Conception, External Approach (ICD-10-PCS; principal; 2016-09-09)
PROC: 0HQ9XZZ Repair Perineum Skin, External Approach (ICD-10-PCS; 2016-09-09)
PROC: 4A1HXCZ Monitoring of Products of Conception, Cardiac Rate, External Approach (ICD-10-PCS; 2016-09-09)
PROC: 10907ZC Drainage of Amniotic Fluid, Therapeutic from Products of Conception, Via Natural or Artificial Opening (ICD-10-PCS; 2016-09-09)
DX: O62.3 Precipitate labor (principal); O72.1 Other immediate postpartum hemorrhage; O24.420 Gestational diabetes mellitus in childbirth, diet controlled; O70.0 First degree perineal laceration during delivery; O77.0 Labor and delivery complicated by meconium in amniotic fluid; O99.334 Smoking (tobacco) complicating childbirth; F17.210 Nicotine dependence, cigarettes, uncomplicated; Z37.0 Single live birth; Z3A.40 40 weeks gestation of pregnancy
CPT/HCPCS: 36415; 80307; 81005; 85025; 85027; 86592; 86850; 86900; 86901; 88307; J2210; J2590; J3490

== ENCOUNTER → 2019-03-05 | Outpatient (CLI) | payer MEDICAID ==
--- NOTE | 2019-03-05 14:21 | RADIOLOGY REPORT (SQ) ---
EXAM DESCRIPTION: HAND RIGHT 3 VIEWS COMPLETED DATE/TIME: 03/05/2019 2:07 pm REASON FOR STUDY: M79.641 PAIN IN RIGHT HAND M25.531 PAIN IN RIGHT WRIST M79.641 PAIN IN RIGHT AMARAL D COMPARISON: 03/20/2012 EXAM PARAMETERS: NUMBER OF VIEWS: Three views. TECHNIQUE: AP, lateral and oblique radiographic images acquired of the right hand. LIMITATIONS: None. FINDINGS: MINERALIZATION: Normal. BONES: No acute fracture or dislocation. No worrisome bone lesions. JOINTS: No effusions. SOFT TISSUES: No soft tissue swelling. No foreign body. OTHER: No other significant finding. IMPRESSION: NEGATIVE STUDY OF THE RIGHT HAND. NO RADIOGRAPHIC EVIDENCE OF ACUTE INJURY. TECHNICAL DOCUMENTATION: JOB ID: [id number] [employer]- All Rights Reserved Reading location - IP/workstation name: [email or web address]
--- NOTE | 2019-03-05 14:22 | RADIOLOGY REPORT (SQ) ---
EXAM DESCRIPTION: WRIST RIGHT 3 VIEWS COMPLETED DATE/TIME: 03/05/2019 2:07 pm REASON FOR STUDY: M25.531 PAIN IN RIGHT WRIST M25.531 PAIN IN RIGHT WRIST M79.641 PAIN IN RIGHT ARENAS ND COMPARISON: None. NUMBER OF VIEWS: Three views. TECHNIQUE: AP, lateral, and oblique radiographic images acquired of the right wrist. LIMITATIONS: None. FINDINGS: MINERALIZATION: Normal. BONES: No acute fracture or dislocation. No worrisome bone lesions. Normal alignment. No significant osteophytes. JOINTS: No erosions. No lakia-articular osteopenia. No chondrocalcinosis. SOFT TISSUES: No swelling. No calcifications. OTHER: No other significant finding. IMPRESSION: NEGATIVE STUDY OF THE RIGHT WRIST. NO EXPLANATION FOR PAIN. TECHNICAL DOCUMENTATION: JOB ID: [id number] [employer]- All Rights Reserved Reading location - IP/workstation name: [email or web address]
== END ==
LOC: RAD 13:50
PROVIDERS: ATTEND Nurse Practitioner Family
DX: M25.531 Pain in right wrist (principal); M79.641 Pain in right hand